=== PATIENT | female | born 1945 | race Caucasian/White ===

== ENCOUNTER → 2016-10-07 | Outpatient (CLI) | payer MEDICARE ==
[~2016-10-07] MED LIST: ALDACTONE25 M1 PO; ALDACTONE25 MG PO; AMIODARONE200 MG PO; AMLODIPINE BESYL5 MG PO; ASPIRIN325 MG PO; ASPIRIN81 M1 PO; ASPRIN/BUTALBIT1 TAB; B12100 MC1 PO; BACTRIM DS 8001 TA1 PO; BUMETANIDE2 MG PO; BUMEX2.5 MG/10 PO; CEPHALEXIN250 MG PO; CLONIDINE0.1 MG PO; COREG12.5 M1 PO; COREG12.5 MG PO; COREG6.25 MG PO; COUMADIN3 M1 PO; COUMADIN6 M1 PO; DICYCLOMINE10 MG PO; DYAZIDE 25 MG-31 CAP PO; GLIPIZIDE5 MG PO; GLUCOTROL5 MG PO; GLYBURIDE2.5 MG PO; GLYBURIDE5 MG PO; HYDROCODONE BIT1 T11 PO; K + POTASSIUM20 MEQ PO; K-Dur 20MEQ20 MEQ PO; LASIX20 MG PO; LASIX40 MG PO; LEVOFLOXACIN500 MG PO; LISINOPRIL40 MG PO; LOVASTATIN40 MG PO; LOVENOX80 MG/0.8 SC; MELOXICAM15 MG PO; METOPROLOL50 MG PO; MICARDIS40 MG PO; MICRONASE5 MG PO; MOBIC15 MG PO; MOTRIN800 MG PO; NEURONTIN300 MG PO; NICODERM C14 MG/241 T; NICOTINE T21 MG/24 H T; NITROSTAT0.4 MG SL; NORVASC5 MG PO; OXYGEN NAS; OYSTER CAL 500500 MG PO; OYSTER SHELL C500 MG PO; PERCOCET 325 MG1 TA2 PO; PLAVIX75 MG; PLAVIX75 MG PO; QUESTRAN1 GM PO; SINEQUAN PO; VICODIN 5/500 505 MG PO; VICODIN 500 MG-1 TAB PO; VITAMIN D2000 IU PO; XANAX0.25 MG PO; ZESTRIL2.5 MG PO
== END | disposition home or self-care (01) ==
LOC: RAD 10:43
DX: M47.897 Other spondylosis, lumbosacral region (principal); M46.07 Spinal enthesopathy, lumbosacral region; I10 Essential (primary) hypertension; J43.8 Other emphysema; E11.9 Type 2 diabetes mellitus without complications; F17.200 Nicotine dependence, unspecified, uncomplicated; I21.3 ST elevation (STEMI) myocardial infarction of unspecified site; Z95.5 Presence of coronary angioplasty implant and graft

== ENCOUNTER → 2017-02-13 | Outpatient (CLI) | payer MEDICARE | END | disposition home or self-care (01) | LOC: RAD 14:37 | DX: M16.0 Bilateral primary osteoarthritis of hip (principal); M47.896 Other spondylosis, lumbar region ==

== ENCOUNTER 2017-05-29 08:59 | Inpatient (IN) | payer MEDICARE ==
[~2017-05-29] VITALS: Ht 165.1 cm; Wt 79.5 kg
--- NOTE | ~2017-05-29 | EKG ---
[place], [place] ELECTROCARDIOGRAM REPORT NAME: CHEMA ALEXIS UNIT #: [id number] ROOM: 419 DOCTOR: DANIEL JACOSB [facility],JULI[facility]AR BIRTHDATE: [birth year] DOS: 05/29/2017 TRACING TIME: 09:35 CONCLUSION: Atrial and ventricular dual-chamber pacing, pacemaker dependent. It appears to be cardiac resynchronization therapy and correlate clinically. No acute changes noted. JULIOCESAR SANCHEZ MD CM:EKGRPT:ELECTROCARDIOGRAM REPORT [id number] JULIOCESAR SANCHEZ MD [facility]
[~2017-05-29 08:59] MED LIST changes: +NORCO 5-325 TA1 EACH PO
[2017-05-29 09:12] VITALS: BP 154/76
[2017-05-29 09:39] LABS: BASO # 0.1 10*3/uL (0.0-0.1); BASO % 0.7 % (0.0-1.0); EOS # 0.2 10*3/uL (0.0-0.4); EOS % 1.8 % (1.0-4.0); HEMOGLOBIN 15.4 g/dl (12.0-16.0); LYMPH # 2.2 10*3/uL (1.3-4.4); LYMPH % 24.9 % (27.0-41.0); MEAN CELL VOLUME 96.6 fl (81.0-99.0); MEAN CORPUSCULAR HGB 32.4 pg (27.0-31.0); MEAN CORPUSCULAR HGB CONC 33.5 g/dl (33.0-37.0); MEAN PLATELET VOLUME 9.3 fl (9.6-12.3); MONO # 0.5 10*3/uL (0.1-1.0); MONO % 5.2 % (3.0-9.0); NEUT # 5.9 10*3/uL (2.3-7.9); NEUT % 67.1 % (47.0-73.0); PLATELET COUNT AUTOMATED 177 10*3/uL (130-400); RED BLOOD COUNT 4.76 10*6/uL (4.10-5.10); RED CELL DISTRI WIDTH 13.4 % (0-14.5); WHITE BLOOD COUNT 8.7 10*3/uL (4.8-10.8)
[2017-05-29 09:54] LABS: ALBUMIN 3.7 gm/dl (3.1-4.5); CREATININE 1.49 mg/dL (0.55-1.02); POTASSIUM 4.5 mmol/L (3.5-5.1); TOTAL PROTEIN 8.3 gm/dL (6.4-8.2)
[2017-05-29 10:25] LABS: BILIRUBIN NEGATIVE (NEGATIVE); BLOOD 1+ (NEGATIVE); CLARITY CLOUDY (CLEAR); COLOR YELLOW (YELLOW); GLUCOSE NEGATIVE (NEGATIVE); KETONE NEGATIVE (NEGATIVE); LEUKO ESTERASE 3+ (NEGATIVE); NITRITE POSITIVE (NEGATIVE); PH 6.5 (5.0-9.0); UROBILINOGEN 0.2 E.U./dl (0.2-1.0)
[2017-05-29 10:35] LABS: BACTERIA 4+; WBC TNTC wbc/hpf (0-5)
[2017-05-29] MEDS ORDERED: BUMETANIDE1 MG PO (12:36)
--- NOTE | 2017-05-29 12:36 | NUR ---
Time: 1235 A 72 year old FEMALE admitted to under services of ABBI NICK DO. Pt. arrived via bed from ER. Chief complaint: BACK PAIN. JOLEEN DELVALLE
[2017-05-29 12:52] VITALS: BP 105/82
--- NOTE | 2017-05-29 12:55 | NUR ---
MED REC UPDATED BY CALLING PHARMACY AND VERIFYING WITH PT.
--- NOTE | 2017-05-29 14:22 | NUR ---
ROCEPHIN WAS GIVEN IN ER. PT CAME UP TO FLOOR WHILE IF WAS INFUSING.
--- NOTE | 2017-05-29 14:31 | NUR ---
PHYSICAL THERAPY PAtient evaluated on 4, full evaluation to follow. Continue with PT as per plan of care with fall, acute complaints of back pain and possible UTI precautions. Refuses SNF- reports " I am going home tomorrow." Home with complete home health services recommended. Thank you for this referral. Carolyn Ochoa,PT
[2017-05-29 16:00] VITALS: BP 101/78
--- NOTE | 2017-05-29 16:01 | NUR ---
C/O PAIN TO BACK OF 4/10 AT REST AND 7/10 WITH MOVEMENT. NORCO GIVEN AT THIS TIME. WILL CONT TO MONITOR. CALL LIGHT IN REACH.
--- NOTE | 2017-05-29 17:00 | NUR ---
PAIN RELIEVED AT REST FROM NORCO. WILL CONT TO MONITOR. CALL LIGHT IN REACH.
--- NOTE | 2017-05-29 17:20 | NUR ---
PER DR KILPATRICK PUT BUMEX ON HOLD UNTIL PATIENT IS REASSESSED TOMORROW AND GIVE ORDERED IVF.
--- NOTE | 2017-05-29 19:30 | NUR ---
PATIENT RESTING IN BED. PATIENT IS NO LONGER COMPLAINING OF BACK PAIN THAT WAS MEDICATED EARLIER IN THE DAY. PATIENT DENIED ANY SOB, DISCOMFORT OR DIZZINESS UPON AMBULATION TO THE BATHROOM. PATIENT IS A&OX3 AND AMBULATORY WITH ASSIST, GAIT UNSTEADY. BED ALARM ACTIVE. CALL LIGHT WITHIN REACH. SEE ASSESSMENT.
[2017-05-29 20:00] VITALS: BP 134/88
[2017-05-30] VITALS: BP 138/84
[2017-05-30 06:04] LABS: BASO # 0.1 10*3/uL (0.0-0.1); EOS # 0.2 10*3/uL (0.0-0.4); HEMOGLOBIN 14.6 g/dl (12.0-16.0); LYMPH # 2.8 10*3/uL (1.3-4.4); LYMPH % 34.1 % (27.0-41.0); MEAN CELL VOLUME 99.3 fl (81.0-99.0); MEAN CORPUSCULAR HGB CONC 33.2 g/dl (33.0-37.0); MEAN PLATELET VOLUME 9.6 fl (9.6-12.3); MONO # 0.5 10*3/uL (0.1-1.0); MONO % 6.7 % (3.0-9.0); NEUT # 4.5 10*3/uL (2.3-7.9); NEUT % 55.8 % (47.0-73.0); PLATELET COUNT AUTOMATED 178 10*3/uL (130-400); RED BLOOD COUNT 4.43 10*6/uL (4.10-5.10); RED CELL DISTRI WIDTH 13.6 % (0-14.5); WHITE BLOOD COUNT 8.1 10*3/uL (4.8-10.8)
[2017-05-30 06:15] LABS: CREATININE 1.43 mg/dL (0.55-1.02); PHOSPHOROUS 3.2 mg/dL (2.5-4.9); POTASSIUM 4.3 mmol/L (3.5-5.1)
[2017-05-30 06:22] LABS: THYROID STIM HORMONE (HS) 4.82 uIU/ml (0.358-4.75)
--- NOTE | 2017-05-30 06:33 | NUR ---
PATIENT GIVEN NORCO PER PT REQUEST FOR BACK PAIN RATED 4/10 AND DESCRIBED A DULL ACHE. WLL CONTINUE TO MONITOR AND REASSESS.
--- NOTE | 2017-05-30 06:48 | NUR ---
PATIENT WAS PLEASANT AND COOPERATIVE THROUGHOUT SHIFT. PATIENT VERBALIZES BEING ABLE TO SLEEP WITH MINIMAL INTERRUPTIONS. PATIENT HAS SOME LOWER BACK PAIN, BUT DENIES ANY OTHER DISCOMFORT AT THIS TIME. PATIENT IS ABLE TO AMBULATE TO THE BATHROOM EASIER WITH MINIMAL ASSISTANCE. CALL LIGHT WITHIN REACH. NO FURTHER REQUESTS AT THIS TIME, HOB ELEVATED. SEE ASSESSMENT.
[2017-05-30 08:00] VITALS: BP 91/56
[2017-05-30 12:00] VITALS: BP 125/75
[2017-05-30 16:00] VITALS: BP 102/74
--- NOTE | 2017-05-30 19:30 | NUR ---
PATIENT IS SITTING UP AT THE BEDSIDE. PATIENT IS NO LONGER RECEIVING FLUIDS. PATIENT VERBALIZES BEING ABLE TO AMBULATE EASIER AND DENIES ANY PAIN OR DISCOMFORT UPON ASSESSMENT. PATIENT IS A&OX3 AND AMBULATORY WITH MINIMAL ASSIST. NO FURTHER REQUESTS AT THIS TIME, BED IN LOWEST POSITION, HOB ELEVATED, CALL LIGHT WITHIN REACH. SEE ASSESSMENT.
[2017-05-30 20:00] VITALS: BP 104/67
[2017-05-31] VITALS: BP 100/75
--- NOTE | 2017-05-31 06:12 | NUR ---
PATIENT GIVEN TYLENOL PER PT REQUEST FOR HEADACHE. WILL CONTINUE TO MONITOR AND REASSESS.
--- NOTE | 2017-05-31 06:20 | NUR ---
PATIENT SLEPT SOUNDLY THROUGHOUT THE NIGHT WITH MINIMAL INTERRUPTIONS. PATIENT DENIES ANY PAIN OR DISCOMFORT, BUT DOES VERBALIZE FEELING A LITTLE HEADACHE UPON ASSSESSMENT. CALL LIGHT IS WITHIN REACH. HOB ELEVATED. SEE ASSESSMENT.
[2017-05-31 08:00] VITALS: BP 123/82
--- NOTE | 2017-05-31 08:00 | NUR ---
PT SITTING UP IN BED, NO DISTRESS NOTED. PT STATES EARLIER TYLENOL WAS EFFECTIVE FOR HEADACHE. PT DENIES ANY COMPLAINTS. STATES LOWER BACK PAIN HAS IMPROVED, WELL HER MOBILITLY. STATES HER URINARY FREQUENCY HAS DECREASED. CALL LIGHT WITHIN REACH.
[2017-05-31] MEDS ORDERED: DOXYCYCLINE100 MG PO (10:41)
[2017-05-31 12:00] VITALS: BP 120/78
--- NOTE | 2017-05-31 13:23 | NUR ---
Discharge instructions reviewed with patient/family. Patient receptive and verbalizes understanding. Follow-up care arranged. Written instructions given to patient/family. IV site removed. Pt denied need for trasnport to [facility] accompanied by son. ASHLEY PARK
--- NOTE | 2017-06-01 13:05 | NUR ---
OT EVALUATION COMPLETED 05/29/17, PT SITTING IN CHAIR. MINIMAL COMPLEXITY DETERMINED BY CHART REVIEW AND OT EVALUATION.
== END 2017-05-31 13:23 | disposition home or self-care (01) | DRG 690 ==
LOC: ED 08:59 → EDHOLD 11:06 → 4E 11:08
PROVIDERS: Internal Medicine Nephrology; Nurse Practitioner Family; ADMIT Emergency Medicine
DX: N30.01 Acute cystitis with hematuria (principal); N18.4 Chronic kidney disease, stage 4 (severe); E11.22 Type 2 diabetes mellitus with diabetic chronic kidney disease; E87.1 Hypo-osmolality and hyponatremia; I12.9 Hypertensive chronic kidney disease with stage 1 through stage 4 chronic kidney disease, or unspecified chronic kidney disease; I25.10 Atherosclerotic heart disease of native coronary artery without angina pectoris; E83.41 Hypermagnesemia; M54.5 Low back pain; B96.20 Unspecified Escherichia coli [E. coli] as the cause of diseases classified elsewhere; E78.5 Hyperlipidemia, unspecified; F17.210 Nicotine dependence, cigarettes, uncomplicated; I25.2 Old myocardial infarction; Z86.73 Personal history of transient ischemic attack (TIA), and cerebral infarction without residual deficits; Z98.42 Cataract extraction status, left eye; Z98.41 Cataract extraction status, right eye; Z95.810 Presence of automatic (implantable) cardiac defibrillator; Z95.5 Presence of coronary angioplasty implant and graft; Z79.02 Long term (current) use of antithrombotics/antiplatelets; Z79.82 Long term (current) use of aspirin; Z79.899 Other long term (current) drug therapy; Z82.3 Family history of stroke; Z83.3 Family history of diabetes mellitus; Z82.49 Family history of ischemic heart disease and other diseases of the circulatory system; Z80.3 Family history of malignant neoplasm of breast

== ENCOUNTER 2017-10-04 17:15 | Inpatient (IN) | payer MEDICARE, MEDICAID ==
[~2017-10-04] VITALS: Ht 167.6 cm; Wt 77.8 kg
--- NOTE | ~2017-10-04 | CON ---
[place], [place] REPORT OF CONSULTATION NAME: CHEMA ALEXIS [facility] #: [id number] UNIT #: [id number] ROOM: 507 DO[facility] BIR[facility] [birth year] DOS: 10/06/2017 CARDIOLOGY CONSULTATION HISTORY OF PRESENT ILLNESS: This is a 72-year-old female came in to the Emergency Room with a progressive increase in swelling and dyspnea for the last several days and changes in the diuretics and optimize medical therapy. It gotten better and I have seen the patient before for congestive heart failure and hypertensive related cardiovascular disease. The patient has history of coronary artery disease. The patient has a cath and coronary stenting done before and denies any significant chest discomfort and nausea or vomiting. The patient has a history of congestive heart failure, peripheral edema, coronary artery disease, coronary stenting, chronic kidney disease stage 4, GFR is about 30 mL/minute, hypertensive cardiovascular disease, and dyslipidemia. PAST MEDICAL HISTORY: The patient has a history of urinary tract disease in the past. PAST SURGICAL HISTORY: Cardiac pacemaker and coronary stenting. SOCIAL HISTORY: No history of alcohol or drug. The patient has history of smoking. FAMILY HISTORY: Father has a history of severe cerebral aneurysm and the mother has history of breast cancer in the past. Father also . ALLERGIES: No known allergies. PHYSICAL EXAMINATION: VITAL SIGNS: Blood pressure 130/74, heart rate is 80, afebrile. GENERAL: Alert and responding well. Cognition is good. SKIN: Warm, not diaphoretic. NECK: Supple. LUNGS: Diminished breath sounds at the bases. Bilateral rhonchi and crepitations. HEART: S1, S2 regular. ____ systolic murmur. Ventricular gallop. ABDOMEN: Soft. EXTREMITIES: A 1-2+ peripheral edema, appears to be improved. RECTAL, GENITAL, AND BREASTS: Deferred unrelated. NEUROLOGIC: No gross focal neurological deficit noted. LABORATORY DATA: Electrolytes are unremarkable. Triglycerides are unremarkable. HDL is unremarkable. HDL is normal. TSH is also unremarkable. Hemoglobin A1c 5.7, normal. Hemoglobin is 14.4, is normal. IMPRESSION: 1. Congestive heart failure, stabilizing. 2. Coronary artery disease, coronary stenting, stable. 3. Chronic kidney disease, stable. 4. Dyslipidemia, stable. [place], [place] REPORT OF CONSULTATION NAME: CHEMA ALEXIS UNIT #: [id number] ROOM: 507 DOCTOR: DANIEL JACOBS [facility],JUL[facility] BIRTHDATE: [birth year] PLAN: Add nitrate, continue the diuretic, and continue the current management. I will review the echocardiogram to evaluate ____ performance whether if the patient has any underlying diastolic congestive heart failure and also systolic heart failure. Thank you very much for asking me to see the patient. I will follow the patient. JULIOCESAR SANCHEZ MD CM:CONSTR:REPORT OF CONSULTATION 1041 10/07/17 0335 interface
[~2017-10-04 17:15] MED LIST changes: +BUMETANIDE1 MG PO; +DOXYCYCLINE100 MG PO
[2017-10-04 17:16] VITALS: BP 134/88
[2017-10-04] MEDS ORDERED: Synthroid,Levo25 MCG PO (17:18)
[2017-10-04 17:38] LABS: BASO # 0.1 10*3/uL (0.0-0.1); BASO % 1.1 % (0.0-1.0); EOS # 0.2 10*3/uL (0.0-0.4); EOS % 2.8 % (1.0-4.0); HEMATOCRIT 44.7 % (37.0-47.0); HEMOGLOBIN 14.9 g/dl (12.0-16.0); LYMPH # 2.8 10*3/uL (1.3-4.4); MEAN CELL VOLUME 98.2 fl (81.0-99.0); MEAN CORPUSCULAR HGB 32.7 pg (27.0-31.0); MEAN CORPUSCULAR HGB CONC 33.3 g/dl (33.0-37.0); MEAN PLATELET VOLUME 9.8 fl (9.6-12.3); MONO # 0.6 10*3/uL (0.1-1.0); MONO % 7.4 % (3.0-9.0); NEUT # 4.9 10*3/uL (2.3-7.9); NEUT % 56.5 % (47.0-73.0); PLATELET COUNT AUTOMATED 175 10*3/uL (130-400); RED BLOOD COUNT 4.55 10*6/uL (4.10-5.10); RED CELL DISTRI WIDTH 13.2 % (0-14.5); WHITE BLOOD COUNT 8.7 10*3/uL (4.8-10.8)
[2017-10-04 17:43] VITALS: BP 134/83
[2017-10-04] MEDS ORDERED: OXYGEN NAS (17:45)
[2017-10-04 17:55] LABS: ALBUMIN 3.5 gm/dl (3.1-4.5); ALKALINE PHOSPHATASE 71 U/L (45-117); BUN 15 mg/dl (7-24); CHLORIDE 105 mmol/L (98-107); CREATININE 1.31 mg/dL (0.55-1.02); POTASSIUM 3.8 mmol/L (3.5-5.1); SGOT/AST 18 IU/L (3-35); SGPT/ALT 15 U/L (12-78); SODIUM 139 mmol/L (136-145); TOTAL PROTEIN 7.4 gm/dL (6.4-8.2); TROPONIN I < 0.015 ng/ml (<0.045)
[2017-10-04 18:15] LABS: ACT PARTIAL THROMBO TIME 24.4 SECONDS (20.8-31.5)
[2017-10-04 20:00] VITALS: BP 119/75
[2017-10-05] VITALS: BP 111/76
[2017-10-05 06:47] LABS: BASO # 0.1 10*3/uL (0.0-0.1); BASO % 0.9 % (0.0-1.0); EOS # 0.2 10*3/uL (0.0-0.4); EOS % 3.1 % (1.0-4.0); HEMATOCRIT 43.1 % (37.0-47.0); HEMOGLOBIN 14.4 g/dl (12.0-16.0); LYMPH # 3.2 10*3/uL (1.3-4.4); LYMPH % 41.1 % (27.0-41.0); MEAN CELL VOLUME 98.4 fl (81.0-99.0); MEAN CORPUSCULAR HGB 32.9 pg (27.0-31.0); MEAN CORPUSCULAR HGB CONC 33.4 g/dl (33.0-37.0); MONO # 0.6 10*3/uL (0.1-1.0); MONO % 7.4 % (3.0-9.0); NEUT # 3.7 10*3/uL (2.3-7.9); NEUT % 47.2 % (47.0-73.0); PLATELET COUNT AUTOMATED 164 10*3/uL (130-400); RED BLOOD COUNT 4.38 10*6/uL (4.10-5.10); RED CELL DISTRI WIDTH 13.3 % (0-14.5); WHITE BLOOD COUNT 7.9 10*3/uL (4.8-10.8)
[2017-10-05 06:59] LABS: ALBUMIN 3.5 gm/dl (3.1-4.5); CREATININE 1.36 mg/dL (0.55-1.02); PHOSPHOROUS 3.4 mg/dL (2.5-4.9); POTASSIUM 3.5 mmol/L (3.5-5.1)
[2017-10-05 07:05] LABS: FREE T4 1.65 ng/dl (0.76-1.46); TOTAL PROTEIN 7.5 gm/dL (6.4-8.2)
[2017-10-05 07:06] LABS: THYROID STIM HORMONE (HS) 2.73 uIU/ml (0.358-4.75)
[2017-10-05 08:00] VITALS: BP 137/73
[2017-10-05 09:20] LABS: VITAMIN D, 25-HYDROXY 37.9 ng/mL (30-100)
[2017-10-05] MEDS ORDERED: DULERA 100 MCG8.8 GM INH (11:35)
[2017-10-05] MEDS ORDERED: ATARAX,VISTARIL50 MG PO (11:36)
[2017-10-05] MEDS ORDERED: NITROGLYCERIN0.4 MG SL (11:38)
[2017-10-05] MEDS ORDERED: SYMB160 INH (11:38)
[2017-10-05] MEDS ORDERED: LOVASTATIN40 MG PO (11:45)
[2017-10-05 12:00] VITALS: BP 132/74
[2017-10-05 16:00] VITALS: BP 122/83
[2017-10-05 20:00] VITALS: BP 131/62
[2017-10-06] VITALS: BP 128/88
[2017-10-06 06:40] LABS: CREATININE 1.42 mg/dL (0.55-1.02); POTASSIUM 3.7 mmol/L (3.5-5.1)
[2017-10-06 08:00] VITALS: BP 120/80
[2017-10-06 12:00] VITALS: BP 93/73
[2017-10-06 16:00] VITALS: BP 110/79
[2017-10-06 18:25] LABS: BILIRUBIN NEGATIVE (NEGATIVE); BLOOD NEGATIVE (NEGATIVE); CLARITY SL CLOUDY (CLEAR); COLOR YELLOW (YELLOW); GLUCOSE NEGATIVE (NEGATIVE); KETONE NEGATIVE (NEGATIVE); LEUKO ESTERASE 3+ (NEGATIVE); NITRITE POSITIVE (NEGATIVE)
[2017-10-06 18:31] LABS: BACTERIA 3+; RBC 0-2 rbc/hpf (0-2); WBC TNTC wbc/hpf (0-5)
[2017-10-06 20:00] VITALS: BP 123/75
[2017-10-07] VITALS: BP 119/74
[2017-10-07 06:58] LABS: ALBUMIN 3.3 gm/dl (3.1-4.5); CREATININE 1.41 mg/dL (0.55-1.02); PHOSPHOROUS 3.7 mg/dL (2.5-4.9); POTASSIUM 3.4 mmol/L (3.5-5.1)
[2017-10-07 08:00] VITALS: BP 146/69
[2017-10-07] MEDS ORDERED: BUMETANIDE1 MG PO (10:28)
[2017-10-07] MEDS ORDERED: OXYGEN NAS (10:28)
[2017-10-07] MEDS ORDERED: B12,B-12,B 12500 MC1 PO (10:28)
[2017-10-07] MEDS ORDERED: K-TAB10 MEQ PO (10:28)
[2017-10-07] MEDS ORDERED: IMDUR SA30 MG PO (13:21)
== END 2017-10-07 13:30 | disposition home or self-care (01) | DRG 291 ==
LOC: ED 17:15 → 5E 18:04 → EDHOLD 18:04 → 5E 18:16
PROVIDERS: Emergency Medicine; Internal Medicine; Internal Medicine Cardiovascular Disease; Registered Nurse
DX: I13.0 Hypertensive heart and chronic kidney disease with heart failure and stage 1 through stage 4 chronic kidney disease, or unspecified chronic kidney disease (principal); I50.43 Acute on chronic combined systolic (congestive) and diastolic (congestive) heart failure; I26.99 Other pulmonary embolism without acute cor pulmonale; N18.4 Chronic kidney disease, stage 4 (severe); I25.10 Atherosclerotic heart disease of native coronary artery without angina pectoris; E78.2 Mixed hyperlipidemia; I08.0 Rheumatic disorders of both mitral and aortic valves; E11.22 Type 2 diabetes mellitus with diabetic chronic kidney disease; E11.65 Type 2 diabetes mellitus with hyperglycemia; Z99.81 Dependence on supplemental oxygen; Z95.810 Presence of automatic (implantable) cardiac defibrillator; Z79.02 Long term (current) use of antithrombotics/antiplatelets; Z79.82 Long term (current) use of aspirin; Z79.899 Other long term (current) drug therapy; Z95.5 Presence of coronary angioplasty implant and graft; I25.2 Old myocardial infarction; Z98.42 Cataract extraction status, left eye; Z98.41 Cataract extraction status, right eye; Z83.3 Family history of diabetes mellitus; Z82.49 Family history of ischemic heart disease and other diseases of the circulatory system; Z82.3 Family history of stroke; Z80.3 Family history of malignant neoplasm of breast

== ENCOUNTER 2017-12-26 21:44 | Emergency (ER) | payer MEDICARE, MEDICAID ==
[~2017-12-26] VITALS: Ht 167.6 cm; Wt 79.4 kg
[~2017-12-26 21:44] MED LIST changes: +ATARAX,VISTARIL50 MG PO; +B12,B-12,B 12500 MC1 PO; +DULERA 100 MCG8.8 GM INH; +IMDUR SA30 MG PO; +K-TAB10 MEQ PO; +NITROGLYCERIN0.4 MG SL; +SYMB160 INH; +Synthroid,Levo25 MCG PO
[2017-12-26 23:56] VITALS: BP 107/62
== END 2017-12-27 03:12 | disposition short-term general hospital (02) ==
LOC: ED 21:44
DX: S32.392A Other fracture of left ilium, initial encounter for closed fracture (principal); S32.492A Other specified fracture of left acetabulum, initial encounter for closed fracture; S40.021A Contusion of right upper arm, initial encounter; F17.200 Nicotine dependence, unspecified, uncomplicated; I25.10 Atherosclerotic heart disease of native coronary artery without angina pectoris; I13.0 Hypertensive heart and chronic kidney disease with heart failure and stage 1 through stage 4 chronic kidney disease, or unspecified chronic kidney disease; E11.22 Type 2 diabetes mellitus with diabetic chronic kidney disease; N18.4 Chronic kidney disease, stage 4 (severe); I50.9 Heart failure, unspecified; E78.5 Hyperlipidemia, unspecified; Z86.73 Personal history of transient ischemic attack (TIA), and cerebral infarction without residual deficits; Z95.0 Presence of cardiac pacemaker; Z95.5 Presence of coronary angioplasty implant and graft; Z79.82 Long term (current) use of aspirin; Z79.899 Other long term (current) drug therapy; W10.8XXA Fall (on) (from) other stairs and steps, initial encounter; Y93.89 Activity, other specified; Y92.099 Unspecified place in other non-institutional residence as the place of occurrence of the external cause; Y99.9 Unspecified external cause status

== ENCOUNTER 2018-06-01 09:26 | Inpatient (IN) | payer MEDICARE ==
[~2018-06-01] VITALS: Ht 167.6 cm; Wt 70.0 kg
--- NOTE | ~2018-06-01 | EKG ---
[place], [place] ELECTROCARDIOGRAM REPORT NAME: CHEMA ALEXIS UNIT #: [id number] ROOM: 525 DOCTOR: CARLOTTA DRAFT REPORT BIRTHDATE: [birth year] [facility] Test Date: 2018-06-01 Test Time: 10:22:29 Pat Name: CHEMA ALEXIS Department: Room: [facility] Gender: F Lighting Designer: : 1945 Requested By: MIGUEL ANGEL SIDDIQUI Order Number: [id number] Reading MD: Jason Pfeiffer MD Measurements Intervals [place] Rate: 83 P: 65 MA: 183 QRS: 170 QRSD: 116 T: QT: 458 QTc: 539 Interpretive Statements Atrial-sensed ventricular-paced rhythm No further analysis attempted due to paced rhythm No previous ECG available for comparison Electronically Signed On 06-01-2018 18:02:11 PST by Jason Pfeiffer MD CM:EKGRPT:ELECTROCARDIOGRAM REPORT 1022 1802 MIGUEL ANGEL SIDDIQUI EPIPHANY DRAFT REPORT MIGUEL ANGEL SIDDIQUI
[2018-06-01 09:26] VITALS: BP 128/90
[2018-06-01 10:27] LABS: BASO # 0.1 10*3/uL (0.0-0.1); BASO % 0.8 % (0.0-1.0); EOS # 0.1 10*3/uL (0.0-0.4); EOS % 0.8 % (1.0-4.0); HEMATOCRIT 44.3 % (37.0-47.0); HEMOGLOBIN 14.7 g/dl (12.0-16.0); LYMPH # 1.7 10*3/uL (1.3-4.4); LYMPH % 18.2 % (27.0-41.0); MEAN CORPUSCULAR HGB 32.5 pg (27.0-31.0); MEAN CORPUSCULAR HGB CONC 33.2 g/dl (33.0-37.0); MEAN PLATELET VOLUME 10.2 fl (9.6-12.3); MONO # 0.4 10*3/uL (0.1-1.0); MONO % 4.2 % (3.0-9.0); NEUT # 7.2 10*3/uL (2.3-7.9); NEUT % 75.6 % (47.0-73.0); PLATELET COUNT AUTOMATED 194 10*3/uL (130-400); RED BLOOD COUNT 4.52 10*6/uL (4.10-5.10); RED CELL DISTRI WIDTH 15.3 % (0-14.5); WHITE BLOOD COUNT 9.6 10*3/uL (4.8-10.8)
[2018-06-01 10:46] LABS: ALBUMIN 3.2 gm/dl (3.1-4.5); ALKALINE PHOSPHATASE 84 U/L (45-117); BUN 8 mg/dl (7-24); CHLORIDE 104 mmol/L (98-107); CREATININE 1.38 mg/dL (0.55-1.02); POTASSIUM 2.9 mmol/L (3.5-5.1); SGOT/AST 18 IU/L (3-35); SGPT/ALT 11 U/L (12-78); SODIUM 140 mmol/L (136-145); TOTAL PROTEIN 7.6 gm/dL (6.4-8.2); TROPONIN I < 0.015 ng/ml (<0.045)
[2018-06-01 12:14] VITALS: BP 109/80
[2018-06-01 12:40] VITALS: BP 128/84
[2018-06-01 13:00] VITALS: BP 128/84
[2018-06-01 16:00] VITALS: BP 100/77
[2018-06-01 20:00] VITALS: BP 107/69
[2018-06-02] VITALS: BP 107/60
[2018-06-02 07:10] LABS: BASO # 0.1 10*3/uL (0.0-0.1); BASO % 0.8 % (0.0-1.0); EOS # 0.1 10*3/uL (0.0-0.4); EOS % 0.8 % (1.0-4.0); HEMATOCRIT 43.3 % (37.0-47.0); HEMOGLOBIN 14.1 g/dl (12.0-16.0); LYMPH # 1.9 10*3/uL (1.3-4.4); LYMPH % 22.4 % (27.0-41.0); MEAN CELL VOLUME 98.9 fl (81.0-99.0); MEAN CORPUSCULAR HGB 32.2 pg (27.0-31.0); MEAN CORPUSCULAR HGB CONC 32.6 g/dl (33.0-37.0); MEAN PLATELET VOLUME 10.5 fl (9.6-12.3); MONO # 0.5 10*3/uL (0.1-1.0); MONO % 5.6 % (3.0-9.0); NEUT # 6.1 10*3/uL (2.3-7.9); NEUT % 70.2 % (47.0-73.0); PLATELET COUNT AUTOMATED 176 10*3/uL (130-400); RED BLOOD COUNT 4.38 10*6/uL (4.10-5.10); RED CELL DISTRI WIDTH 15.7 % (0-14.5); WHITE BLOOD COUNT 8.6 10*3/uL (4.8-10.8)
[2018-06-02 07:45] LABS: ALBUMIN 3.1 gm/dl (3.1-4.5); CREATININE 1.34 mg/dL (0.55-1.02); FREE T4 1.62 ng/dl (0.76-1.46); PHOSPHOROUS 2.7 mg/dL (2.5-4.9); POTASSIUM 3.6 mmol/L (3.5-5.1); TOTAL PROTEIN 7.3 gm/dL (6.4-8.2)
[2018-06-02 07:49] LABS: THYROID STIM HORMONE (HS) 2.57 uIU/ml (0.358-4.75)
[2018-06-02 08:30] VITALS: BP 110/82
[2018-06-02] MEDS ORDERED: FUROSEMIDE20 M1 PO (08:38)
[2018-06-02] MEDS ORDERED: CARVEDILOL3.125 MG PO (08:39)
[2018-06-02 08:43] LABS: VITAMIN D, 25-HYDROXY 31.6 ng/mL (30-100)
[2018-06-02 12:00] VITALS: BP 119/73
[2018-06-02 16:00] VITALS: BP 101/78
[2018-06-02 20:00] VITALS: BP 101/66
[2018-06-03] VITALS: BP 93/68
[2018-06-03 07:20] LABS: POTASSIUM 3.7 mmol/L (3.5-5.1)
[2018-06-03 07:27] LABS: ALBUMIN 3.1 gm/dl (3.1-4.5); CREATININE 1.36 mg/dL (0.55-1.02); PHOSPHOROUS 3.2 mg/dL (2.5-4.9)
[2018-06-03 09:00] VITALS: BP 96/56
[2018-06-03 12:00] VITALS: BP 95/67
[2018-06-03 16:00] VITALS: BP 105/67
[2018-06-03 20:00] VITALS: BP 95/74
[2018-06-04] VITALS: BP 110/75
[2018-06-04 07:05] LABS: CREATININE 1.38 mg/dL (0.55-1.02); POTASSIUM 3.5 mmol/L (3.5-5.1)
[2018-06-04] MEDS ORDERED: ISOSORBIDE MONO20 MG PO (11:42)
== END 2018-06-04 13:35 | disposition home health service (06) | DRG 291 ==
LOC: ED 09:26 → 5E 11:43 → EDHOLD 11:43 → 5E 12:01
PROVIDERS: Family Medicine; Nurse Practitioner Family; Registered Nurse
DX: I13.0 Hypertensive heart and chronic kidney disease with heart failure and stage 1 through stage 4 chronic kidney disease, or unspecified chronic kidney disease (principal); I50.43 Acute on chronic combined systolic (congestive) and diastolic (congestive) heart failure; E44.0 Moderate protein-calorie malnutrition; J84.9 Interstitial pulmonary disease, unspecified; N18.4 Chronic kidney disease, stage 4 (severe); J44.9 Chronic obstructive pulmonary disease, unspecified; E87.6 Hypokalemia; E11.22 Type 2 diabetes mellitus with diabetic chronic kidney disease; I25.118 Atherosclerotic heart disease of native coronary artery with other forms of angina pectoris; R09.02 Hypoxemia; E11.65 Type 2 diabetes mellitus with hyperglycemia; E78.5 Hyperlipidemia, unspecified; Z72.0 Tobacco use; Z95.5 Presence of coronary angioplasty implant and graft; Z95.0 Presence of cardiac pacemaker; Z80.3 Family history of malignant neoplasm of breast; Z84.89 Family history of other specified conditions; Z83.3 Family history of diabetes mellitus; Z82.49 Family history of ischemic heart disease and other diseases of the circulatory system; I25.2 Old myocardial infarction; Z91.81 History of falling; Z86.73 Personal history of transient ischemic attack (TIA), and cerebral infarction without residual deficits; Z87.440 Personal history of urinary (tract) infections; Z79.82 Long term (current) use of aspirin; Z79.899 Other long term (current) drug therapy; Z79.02 Long term (current) use of antithrombotics/antiplatelets; Z71.6 Tobacco abuse counseling; Z68.27 Body mass index [BMI] 27.0-27.9, adult

== ENCOUNTER 2018-07-05 10:47 | Emergency (ER) | payer MEDICARE ==
[~2018-07-05] VITALS: Ht 165.1 cm; Wt 71.2 kg
--- NOTE | ~2018-07-05 | EKG ---
[place], [place] ELECTROCARDIOGRAM REPORT NAME: CHEMA ALEXIS UNIT #: [id number] ROOM: DOCTOR: EPIPHANY DRAFT REPORT BIRTHDATE: [birth year] [facility] Test Date: 2018-07-05 Test Time: 11:50:32 Pat Name: CHEMA ALEXIS Department: Room: Gender: F Neuro Psych Sales Specialist: Freda Mackay : 1945 Requested By: LOLY BHATIA Order Number: [id number] Reading MD: Jani Faith MD Measurements Intervals [place] Rate: 79 P: 113 PA: 143 QRS: 250 QRSD: 124 T: 85 QT: 449 QTc: 515 Interpretive Statements A-V dual-paced rhythm with some inhibition No further analysis attempted due to paced rhythm Compared to ECG 06/01/2018 10:22:29 Atrial-sensed ventricular-paced complex(es) or rhythm no longer present Electronically Signed On 07-06-2018 4:15:08 PST by Jani Faith MD CM:EKGRPT:ELECTROCARDIOGRAM REPORT 1150 0415 LOLY LAGUERRE DRAFT REPORT LOLY PEARSON
[~2018-07-05 10:47] MED LIST changes: +CARVEDILOL3.125 MG PO; +FUROSEMIDE20 M1 PO; +ISOSORBIDE MONO20 MG PO
[2018-07-05 11:56] LABS: BILIRUBIN NEGATIVE (NEGATIVE); BLOOD NEGATIVE (NEGATIVE); CLARITY CLEAR (CLEAR); COLOR STRAW (YELLOW); GLUCOSE NEGATIVE (NEGATIVE); KETONE NEGATIVE (NEGATIVE); LEUKO ESTERASE NEGATIVE (NEGATIVE); NITRITE NEGATIVE (NEGATIVE); SPECIFIC GRAVITY 1.015 (1.005-1.030); UROBILINOGEN 0.2 E.U./dl (0.2-1.0)
[2018-07-05 12:11] LABS: BASO # 0.1 10*3/uL (0.0-0.1); BASO % 0.9 % (0.0-1.0); EOS # 0.1 10*3/uL (0.0-0.4); EOS % 0.9 % (1.0-4.0); HEMATOCRIT 44.8 % (37.0-47.0); HEMOGLOBIN 14.9 g/dl (12.0-16.0); LYMPH # 1.8 10*3/uL (1.3-4.4); MEAN CELL VOLUME 101.4 fl (81.0-99.0); MEAN CORPUSCULAR HGB 33.7 pg (27.0-31.0); MEAN CORPUSCULAR HGB CONC 33.3 g/dl (33.0-37.0); MEAN PLATELET VOLUME 9.9 fl (9.6-12.3); MONO # 0.4 10*3/uL (0.1-1.0); NEUT # 6.6 10*3/uL (2.3-7.9); PLATELET COUNT AUTOMATED 190 10*3/uL (130-400); RED BLOOD COUNT 4.42 10*6/uL (4.10-5.10); RED CELL DISTRI WIDTH 15.8 % (0-14.5); WHITE BLOOD COUNT 8.9 10*3/uL (4.8-10.8)
[2018-07-05 12:23] LABS: ACT PARTIAL THROMBO TIME 24.6 SECONDS (20.8-31.5)
[2018-07-05 12:30] LABS: ALBUMIN 3.5 gm/dl (3.1-4.5); ALKALINE PHOSPHATASE 74 U/L (45-117); BUN 11 mg/dl (7-24); CHLORIDE 108 mmol/L (98-107); CREATININE 1.34 mg/dL (0.55-1.02); LIPASE 62 U/L (73-393); POTASSIUM 4.7 mmol/L (3.5-5.1); SGOT/AST 17 IU/L (3-35); SGPT/ALT 11 U/L (12-78); SODIUM 139 mmol/L (136-145); TOTAL PROTEIN 7.9 gm/dL (6.4-8.2)
[2018-07-05 12:34] LABS: TROPONIN I < 0.015 ng/ml (<0.045)
[2018-07-05 14:00] VITALS: BP 135/76
[2018-07-05] MEDS ORDERED: ZOFRAN4 MG PO (14:20)
== END 2018-07-05 14:16 | disposition home or self-care (01) ==
LOC: ED 10:47
PROVIDERS: Physician Assistant
DX: K52.9 Noninfective gastroenteritis and colitis, unspecified (principal); R42 Dizziness and giddiness; R79.1 Abnormal coagulation profile; Z88.8 Allergy status to other drugs, medicaments and biological substances; Z79.899 Other long term (current) drug therapy; Z79.82 Long term (current) use of aspirin

== ENCOUNTER 2018-09-04 10:19 | Inpatient (IN) | payer MEDICARE ==
[2018-09-04] VITALS (7 sets, daily range): BP systolic 115–148; BP diastolic 68–87
[~2018-09-04] VITALS: Ht 167.6 cm; Wt 74.5 kg
--- NOTE | ~2018-09-04 | CON ---
[place], [place] REPORT OF CONSULTATION NAME: CHEMA ALEXIS [facility] #: [id number] UNIT #: [id number] ROOM: 421 DOCTOR: DANIEL JACOBS [facility],JULIOCESAR BIRTHDATE: [birth year] DOS: 09/06/2018 HISTORY OF PRESENT ILLNESS: The patient came in with progressive dyspnea. Continued to smoke about a pack to a pack a day and the patient has recurrent congestive heart failure and found to the pneumonia, hypertension, history of CVA, dyslipidemia and chronic kidney disease, chronic obstructive disease. I will follow the patient periodically. I will follow the patient's coronary artery disease, coronary stenting and a pacemaker, systolic ejection fraction is 30%-35%. The patient has a hepatojugular, bibasilar rales, ventricular gallop, 2+ ankle edema. LABORATORY DATA: Creatinine is 1.29. Hemoglobin 13.2. Chest x-ray: Emphysematous changes, consolidation in the right middle and lower lung zone and underlying pulmonary congestion may be considered. IMPRESSION: Congestive heart failure and pneumonia. PLAN: Continue the current management. Continue the amiodarone 200 mg daily and a baby aspirin, Plavix, glipizide, gabapentin, thyroid supplements, lovastatin, potassium supplements, carvedilol and isosorbide and the diuretics. We will continue current management. I may make appropriate adjustments when I follow her in the office. Thank you very much for asking me to see the patient. JULIOCESAR SANCHEZ MD CM:CONSTR:REPORT OF CONSULTATION 1849 09/07/18 0720 interface
--- NOTE | ~2018-09-04 | EKG ---
[place], [place] ELECTROCARDIOGRAM REPORT NAME: CHEMA ALEXIS UNIT #: [id number] ROOM: 421 DOCTOR: CARLOTTA DRAFT REPORT BIRTHDATE: [birth year] [facility] Test Date: 2018-09-04 Test Time: 11:53:45 Pat Name: CHEMA ALEXIS Department: Room: 421 Gender: F Grocery Store Bagger: Freda Mackay : 1945 Requested By: SELWYN DARBY Order Number: [id number] Reading MD: Benja King Measurements Intervals [place] Rate: 80 P: 146 CA: 154 QRS: 249 QRSD: 146 T: 84 QT: 459 QTc: 530 Interpretive Statements Atrial-ventricular paced Compared to ECG 07/05/2018 11:50:32 No significant changes Electronically Signed On 09-05-2018 11:05:44 PDT by Benja King CM:EKGRPT:ELECTROCARDIOGRAM REPORT 1153 1105 SELWYN LAGUERRE DRAFT REPORT SELWYN DARBY M.D.
--- NOTE | ~2018-09-04 | CON ---
[place], [place] REPORT OF CONSULTATION NAME: CHEMA ALEXIS UNIT #: [id number] ROOM: 421 DO[facility] B[facility] [birth year] DOS: CARDIOLOGY CONSULTATION HISTORY OF PRESENT ILLNESS: The patient came in with progressive dyspnea, found to be in pneumonia and acute exacerbation of the chronic congestive heart failure. The patient continues to smoke more than a pack a day and the patient found to be in hypokalemic, hyperglycemia, coronary artery disease and history of hypertension, hypertensive cardiovascular disease, CVA, dyslipidemia, chronic obstructive pulmonary disease. The patient smokes half a pack to a pack a day and the patient's unilateral big toe and second toe and peripheral edema noted. The patient has severe peripheral artery disease and systolic ejection fraction of less than 30-35. The patient had a coronary stenting and the patient has a pacemaker and the ICD supposed to be explanted because of the infection, and supposed to put it back in September. PHYSICAL EXAMINATION: VITAL SIGNS: Blood pressure is 110/69, heart rate is 90. GENERAL: The patient has a wide QRS complex tachycardia, ventricular tachycardia, nonsustained and at times, as it sustained, the patient has a LifeVest. The patient has positive hepatojugular reflux. LUNGS: Diminished breath sounds, bibasilar rales. HEART: S1, S2 regular. ABDOMEN: Soft. SKIN: Color is not diaphoretic. EXTREMITIES: Peripheral edema noted 3+. RECTAL AND GENITAL: Deferred, unrelated. LABORATORY DATA: Creatinine is 1.23. Electrolytes are normal. Magnesium is normal. Calcium is normal. Hemoglobin is 13.2, WBC count is normal. DIAGNOSES: Congestive heart failure, severe left ventricular dysfunction, ejection fraction less than 35%, sustained ventricular tachycardia. PLAN: The patient's LifeVest ICD was removed because of the infection, may put back on the ICD meanwhile, increase the beta blocking agents and increase the Cordarone to maintain the optimal rhythm and optimal heart rate and the heart rate is greater than 90. I will increase beta nellie, it may come down, we will continue the current management. Thank you very much for asking me to see the patient. I will follow the patient. [place], [place] REPORT OF CONSULTATION NAME: CHEMA ALEXIS UNIT #: [id number] ROOM: 421 DOCTOR: [facility]BS [facility] BIR[facility]: [birth year] JULIOCESAR SANCHEZ MD CM:CONSTR:REPORT OF CONSULTATION 184 10/07/181947 interface [facility]
--- NOTE | ~2018-09-04 | CON ---
[place], [place] REPORT OF CONSULTATION NAME: CHEMA ALEXIS UNIT #: [id number] ROOM: 421 DOCTOR: DANIEL JACOBS [facility],JULIOCESAR BIRTHDATE: [birth year] DOS: ADDENDUM Blank is unilateral big toe. JUILOCESAR SANCHEZ MD CM:CONSTR:REPORT OF CONSULTATION 1237 10/07/18 1949 interface
[~2018-09-04 10:19] MED LIST changes: +ZOFRAN4 MG PO
[2018-09-04 10:52] LABS: BASO # 0.1 10*3/uL (0.0-0.1); BASO % 0.8 % (0.0-1.0); EOS # 0.2 10*3/uL (0.0-0.4); EOS % 1.7 % (1.0-4.0); HEMATOCRIT 43.4 % (37.0-47.0); HEMOGLOBIN 13.9 g/dl (12.0-16.0); LYMPH # 1.6 10*3/uL (1.3-4.4); LYMPH % 16.8 % (27.0-41.0); MEAN CELL VOLUME 102.8 fl (81.0-99.0); MEAN CORPUSCULAR HGB 32.9 pg (27.0-31.0); MEAN PLATELET VOLUME 10.2 fl (9.6-12.3); MONO # 0.5 10*3/uL (0.1-1.0); MONO % 4.9 % (3.0-9.0); NEUT # 7.3 10*3/uL (2.3-7.9); NEUT % 75.6 % (47.0-73.0); PLATELET COUNT AUTOMATED 170 10*3/uL (130-400); RED BLOOD COUNT 4.22 10*6/uL (4.10-5.10); RED CELL DISTRI WIDTH 15.1 % (0-14.5); WHITE BLOOD COUNT 9.6 10*3/uL (4.8-10.8)
[2018-09-04 11:19] LABS: ALBUMIN 3.1 gm/dl (3.1-4.5); CREATININE 1.32 mg/dL (0.55-1.02); POTASSIUM 3.1 mmol/L (3.5-5.1); TOTAL PROTEIN 7.2 gm/dL (6.4-8.2)
[2018-09-04] MEDS ORDERED: ISOSORBIDE DINI PO (15:15)
[2018-09-05] VITALS: BP 133/74
[2018-09-05 07:39] LABS: BASO # 0.1 10*3/uL (0.0-0.1); BASO % 0.7 % (0.0-1.0); EOS # 0.2 10*3/uL (0.0-0.4); HEMOGLOBIN 13.6 g/dl (12.0-16.0); LYMPH # 1.6 10*3/uL (1.3-4.4); LYMPH % 18.2 % (27.0-41.0); MEAN CELL VOLUME 102.1 fl (81.0-99.0); MEAN CORPUSCULAR HGB 32.3 pg (27.0-31.0); MEAN CORPUSCULAR HGB CONC 31.6 g/dl (33.0-37.0); MEAN PLATELET VOLUME 10.1 fl (9.6-12.3); MONO # 0.6 10*3/uL (0.1-1.0); MONO % 6.8 % (3.0-9.0); NEUT # 6.4 10*3/uL (2.3-7.9); PLATELET COUNT AUTOMATED 157 10*3/uL (130-400); RED BLOOD COUNT 4.21 10*6/uL (4.10-5.10); RED CELL DISTRI WIDTH 15.1 % (0-14.5); WHITE BLOOD COUNT 8.9 10*3/uL (4.8-10.8)
[2018-09-05 08:00] VITALS: BP 136/68
[2018-09-05 08:10] LABS: ACT PARTIAL THROMBO TIME 24.7 SECONDS (20.8-31.5); INTERNATIONAL NORM RATIO 1.1 (2.0-3.5)
[2018-09-05 08:16] LABS: ALBUMIN 3.2 gm/dl (3.1-4.5); CREATININE 1.25 mg/dL (0.55-1.02); PHOSPHOROUS 2.7 mg/dL (2.5-4.9); TOTAL PROTEIN 7.1 gm/dL (6.4-8.2)
[2018-09-05 08:23] LABS: THYROID STIM HORMONE (HS) 3.19 uIU/ml (0.358-4.75)
[2018-09-05 09:29] LABS: VITAMIN D, 25-HYDROXY 28.6 ng/mL (30-100)
[2018-09-05 12:00] VITALS: BP 107/68
[2018-09-05 16:00] VITALS: BP 101/69
[2018-09-05 20:00] VITALS: BP 121/72
[2018-09-06] VITALS: BP 120/53
[2018-09-06 07:15] LABS: BASO # 0.1 10*3/uL (0.0-0.1); BASO % 0.7 % (0.0-1.0); EOS # 0.3 10*3/uL (0.0-0.4); EOS % 3.3 % (1.0-4.0); HEMATOCRIT 41.2 % (37.0-47.0); HEMOGLOBIN 13.2 g/dl (12.0-16.0); LYMPH % 23.2 % (27.0-41.0); MEAN PLATELET VOLUME 10.8 fl (9.6-12.3); MONO # 0.6 10*3/uL (0.1-1.0); MONO % 7.3 % (3.0-9.0); NEUT # 5.5 10*3/uL (2.3-7.9); NEUT % 65.1 % (47.0-73.0); PLATELET COUNT AUTOMATED 142 10*3/uL (130-400); WHITE BLOOD COUNT 8.5 10*3/uL (4.8-10.8)
[2018-09-06 07:39] LABS: CREATININE 1.23 mg/dL (0.55-1.02); POTASSIUM 3.7 mmol/L (3.5-5.1)
[2018-09-06 08:00] VITALS: BP 98/62
[2018-09-06 12:00] VITALS: BP 81/60
[2018-09-06 16:00] VITALS: BP 111/69
[2018-09-06] MEDS ORDERED: LASIX40 MG PO (17:31)
== END 2018-09-06 18:39 | disposition home or self-care (01) | DRG 177 ==
LOC: ED 10:19 → EDHOLD 12:12 → 4E 12:54
PROVIDERS: Emergency Medicine; Student in an Organized Health Care Education/Training Program; ADMIT Internal Medicine
DX: J69.0 Pneumonitis due to inhalation of food and vomit (principal); I50.43 Acute on chronic combined systolic (congestive) and diastolic (congestive) heart failure; I13.0 Hypertensive heart and chronic kidney disease with heart failure and stage 1 through stage 4 chronic kidney disease, or unspecified chronic kidney disease; E87.6 Hypokalemia; J44.9 Chronic obstructive pulmonary disease, unspecified; I25.10 Atherosclerotic heart disease of native coronary artery without angina pectoris; N18.3 Chronic kidney disease, stage 3 (moderate); E11.22 Type 2 diabetes mellitus with diabetic chronic kidney disease; F17.210 Nicotine dependence, cigarettes, uncomplicated; E78.5 Hyperlipidemia, unspecified; E11.36 Type 2 diabetes mellitus with diabetic cataract; Z80.3 Family history of malignant neoplasm of breast; Z83.3 Family history of diabetes mellitus; Z82.49 Family history of ischemic heart disease and other diseases of the circulatory system; Z88.9 Allergy status to unspecified drugs, medicaments and biological substances; Z91.81 History of falling; Z87.81 Personal history of (healed) traumatic fracture; Z86.73 Personal history of transient ischemic attack (TIA), and cerebral infarction without residual deficits; I25.2 Old myocardial infarction; Z98.49 Cataract extraction status, unspecified eye; Z95.0 Presence of cardiac pacemaker; Z79.82 Long term (current) use of aspirin; Z71.6 Tobacco abuse counseling; Z79.84 Long term (current) use of oral hypoglycemic drugs

== ENCOUNTER → 2018-10-18 | Outpatient (CLI) | payer MEDICARE ==
[~2018-10-18] MED LIST changes: +ISOSORBIDE DINI PO
== END | disposition home or self-care (01) ==
LOC: LAB 11:58
DX: R19.7 Diarrhea, unspecified (principal)

== ENCOUNTER 2019-01-23 21:29 | Emergency (ER) | payer MEDICARE ==
[~2019-01-23] VITALS: Ht 172.7 cm; Wt 56.7 kg
[2019-01-23 21:36] VITALS: BP 137/83
== END 2019-01-23 22:00 | disposition home or self-care (01) ==
LOC: ED 21:29
DX: S80.812A Abrasion, left lower leg, initial encounter (principal); I25.10 Atherosclerotic heart disease of native coronary artery without angina pectoris; J44.9 Chronic obstructive pulmonary disease, unspecified; I10 Essential (primary) hypertension; I25.2 Old myocardial infarction; E03.9 Hypothyroidism, unspecified; I13.0 Hypertensive heart and chronic kidney disease with heart failure and stage 1 through stage 4 chronic kidney disease, or unspecified chronic kidney disease; N18.3 Chronic kidney disease, stage 3 (moderate); I50.9 Heart failure, unspecified; E11.22 Type 2 diabetes mellitus with diabetic chronic kidney disease; F17.200 Nicotine dependence, unspecified, uncomplicated; Z79.899 Other long term (current) drug therapy; Z79.82 Long term (current) use of aspirin; Z86.73 Personal history of transient ischemic attack (TIA), and cerebral infarction without residual deficits; Z99.81 Dependence on supplemental oxygen; W22.8XXA Striking against or struck by other objects, initial encounter; Y93.01 Activity, walking, marching and hiking; Y92.89 Other specified places as the place of occurrence of the external cause; Y99.8 Other external cause status

== ENCOUNTER 2019-02-22 00:17 | Inpatient (IN) | payer MEDICARE ==
[2019-02-22] VITALS (8 sets, daily range): BP systolic 103–139; BP diastolic 70–87
[~2019-02-22] VITALS: Ht 165.1 cm; Wt 68.6 kg
[2019-02-22 00:49] LABS: BASO # 0.1 10*3/uL (0.0-0.1); BASO % 0.5 % (0.0-1.0); EOS # 0.2 10*3/uL (0.0-0.4); HEMATOCRIT 40.2 % (37.0-47.0); HEMOGLOBIN 13.3 g/dl (12.0-16.0); LYMPH # 1.9 10*3/uL (1.3-4.4); LYMPH % 21.1 % (27.0-41.0); MEAN CELL VOLUME 98.5 fl (81.0-99.0); MEAN CORPUSCULAR HGB 32.6 pg (27.0-31.0); MEAN CORPUSCULAR HGB CONC 33.1 g/dl (33.0-37.0); MEAN PLATELET VOLUME 10.3 fl (9.6-12.3); MONO # 0.5 10*3/uL (0.1-1.0); MONO % 5.8 % (3.0-9.0); NEUT # 6.4 10*3/uL (2.3-7.9); NEUT % 70.3 % (47.0-73.0); PLATELET COUNT AUTOMATED 154 10*3/uL (130-400); RED BLOOD COUNT 4.08 10*6/uL (4.10-5.10); WHITE BLOOD COUNT 9.2 10*3/uL (4.8-10.8)
[2019-02-22 00:59] LABS: ACT PARTIAL THROMBO TIME 29.7 SECONDS (20.0-32.1); INTERNATIONAL NORM RATIO 1.1 (2.0-3.5)
[2019-02-22 01:06] LABS: ALBUMIN 3.2 gm/dl (3.1-4.5); ALKALINE PHOSPHATASE 71 U/L (45-117); BUN 8 mg/dl (7-24); CHLORIDE 107 mmol/L (98-107); CREATININE 1.13 mg/dL (0.55-1.02); POTASSIUM 2.5 mmol/L (3.5-5.1); SGOT/AST 16 IU/L (3-35); SGPT/ALT 12 U/L (12-78); SODIUM 142 mmol/L (136-145); TOTAL PROTEIN 7.2 gm/dL (6.4-8.2)
[2019-02-22 01:08] LABS: TROPONIN I < 0.015 ng/ml (<0.045)
--- NOTE | 2019-02-22 01:43 | NUR ---
PT TALKING WITH FAMILY NO ACCUTE DISTRESS NOTED. VISHAL ENAMORADO RN,
--- NOTE | 2019-02-22 02:41 | NUR ---
PT HAS HEALING LACERTATION NOTED TO LEFT LOWER LEG NO OPEN AREA NO DRAINAGE FROM SITE. VISHAL ENAMORADO RN.
--- NOTE | 2019-02-22 03:00 | NUR ---
I ASK THE PATIENT ABOUT THE MULTIPLE ECCHYMOTIC AREAS ON HER ARMS. THE PATIENT STATES THESE ARE NOT NEW. AND SHE ALWAYS BRUISES. NO OPEN AREA'S NOTED. VISHAL ENAMORADO RN.
--- NOTE | 2019-02-22 03:37 | NUR ---
A 74, admitted to , under the services of DON Pearson DO with a diagnosis of chf. hypokalemia. Chief complaint is increased sob and ble edema x 1 wk. patient takes lasix routinely and uses o2 prn. Patient arrived via bed from ER. Monitor applied. Initial assessment completed. Vital signs taken and recorded. DON PEARSON DO / anjelica notified of admission to the unit. Orders received. See assessment for past medical history, medications and allergies. Patient and/or family oriented to unit. [facility] visitation policy reviewed. Clothing/patient valuable form completed. RAN THOMPSON
--- NOTE | 2019-02-22 03:49 | NUR ---
UPON TAKING THE PATIENT UP STAIRS TO THE FLOOD SHE STARTED TO COMPLAIN AND I DID STOP THE INFUSION AND LET THE RECIEVING NURSE KNOW. VISHAL ENAMORADO RN.
[2019-02-22] MEDS ORDERED: ONDANSETRON HYDR4 MG PO (03:53)
[2019-02-22] MEDS ORDERED: FUROSEMIDE20 M1 PO (03:54)
[2019-02-22] MEDS ORDERED: ISOSORBIDE MONO10 MG PO (03:58)
--- NOTE | 2019-02-22 06:30 | NUR ---
BSG 168, DECLINES COVERAGE STATING SHE DOESN'T USE INSULIN
--- NOTE | 2019-02-22 06:30 | NUR ---
K-RUN MAINTAINED, PATIENT TOLERATING.
[2019-02-22 06:42] LABS: BASO # 0.1 10*3/uL (0.0-0.1); BASO % 0.7 % (0.0-1.0); EOS # 0.1 10*3/uL (0.0-0.4); EOS % 1.4 % (1.0-4.0); HEMATOCRIT 40.8 % (37.0-47.0); HEMOGLOBIN 13.4 g/dl (12.0-16.0); LYMPH # 2.3 10*3/uL (1.3-4.4); LYMPH % 22.5 % (27.0-41.0); MEAN CELL VOLUME 99.5 fl (81.0-99.0); MEAN CORPUSCULAR HGB 32.7 pg (27.0-31.0); MEAN CORPUSCULAR HGB CONC 32.8 g/dl (33.0-37.0); MEAN PLATELET VOLUME 10.4 fl (9.6-12.3); MONO # 0.5 10*3/uL (0.1-1.0); MONO % 5.2 % (3.0-9.0); NEUT # 7.1 10*3/uL (2.3-7.9); NEUT % 69.7 % (47.0-73.0); PLATELET COUNT AUTOMATED 172 10*3/uL (130-400); RED CELL DISTRI WIDTH 16.1 % (0-14.5); WHITE BLOOD COUNT 10.2 10*3/uL (4.8-10.8)
[2019-02-22 07:21] LABS: ALBUMIN 3.3 gm/dl (3.1-4.5); CREATININE 1.18 mg/dL (0.55-1.02); POTASSIUM 2.9 mmol/L (3.5-5.1)
[2019-02-22 07:29] LABS: FREE T4 1.8 ng/dl (0.76-1.46); THYROID STIM HORMONE (HS) 2.91 uIU/ml (0.358-4.75); TOTAL PROTEIN 7.4 gm/dL (6.4-8.2)
--- NOTE | 2019-02-22 07:40 | NUR ---
ATTEMPTED TO REACH DR SANCHEZ THROUGH ANSWERING SERVICE REGARDING CONSULT. MESSAGE LEFT WITH EDIL WHO IS TO PAGE DR SANCHEZ
--- NOTE | 2019-02-22 08:05 | NUR ---
SPOKE TO DR SANCHEZ REGARDING CONSULT. NEW ORDERS RECEIVED.
--- NOTE | 2019-02-22 08:16 | NUR ---
Nursing screen received and chart reviewed. Patient admitted with CHF. If patient should have a decline in ADls and functional mobility then refer to OT. Thank you. Ree Beaulieu OTR/l
--- NOTE | 2019-02-22 09:16 | NUR ---
VANESACHEMA Mark [id number] Please refer to the physician's history and physical for past medical history, comorbid conditions, and allergies. Diagnosis: CHF HYPOKALMEIA Aidan Score: 16,AT RISK WOUND DESCRIPTIONS: Wound Number: 1 Location of the wound: left lower extremity lateral aspect Thickness: Full Size: 4.9cm x 1.2cm x 0.1cm Tunneling: none Undermining: none Sinus Tract: none Presence of Exudate: Serous Amount: Light Color: Yellow, red Odor: none Periwound Skin Appearance: Normal Wound edges: approximated Pain (associated with wound): none at time of assessmen How does patient state this happened? pt unsure how this happened but states it does seep Surface the patient is resting on: Isoflex SKIN PREVENTION RECOMMENDATION: 1. Pressure redistribution support surface as appropriate 2. Elevate heels 3. Remove boots/TEDS every shift and reapply 4. Head of bed 30 degrees as tolerated 5. Assess nutrition and hydration 6. Manage moisture 7. Avoid the use of containment devices while in bed 8. Use absorptive products on surfaces limit layers of linens on bed 9. Turn and reposition every 1-2 hours in bed and every 1 hour in chair as tolerated 10. Weight shifts every 15 minutes while up in chair 11. Offloading with pillows or device to keep heels elevated off bed 12. Monitor skin at least every shift 13. Inspect under medical devices twice a day WOUND TREATMENT RECOMMENDATIONS: Venous and arterial studies to BLE's due to non-healing wound. Consult podiatry for LLE wound. Full thickness guidelines: Cleanse left lower extremity with nss and apply sureprep around the wound therahoney sheet to wound bed and cover with dsd daily and prn for soiling. Heel raiser pro boots to bilateral feet while in bed.
--- NOTE | 2019-02-22 10:11 | NUR ---
Dr. Gurrola notified of wound care recommendations.
--- NOTE | 2019-02-22 12:35 | NUR ---
C/O INCREASED SOB AND ABD FULLNESS. VSS. DR KENDRICK NOTIFIED.
[2019-02-22 12:36] LABS: BUN 8 mg/dl (7-24); CHLORIDE 110 mmol/L (98-107); CREATININE 1.05 mg/dL (0.55-1.02); SODIUM 144 mmol/L (136-145)
[2019-02-22 12:41] LABS: POTASSIUM 3.8 mmol/L (3.5-5.1)
--- NOTE | 2019-02-22 15:10 | NUR ---
PHYSICAL THERAPY Physical therapy evaluation attempted. Patient reporting that she has not been able to sleep, and she is on edge due to fatigue. Patient requesting that PT return at a later date to complete evaluation. Will attempt PT evaluation at a later date. Thank you. Aliza Badillo,PT,DPT
--- NOTE | 2019-02-22 15:59 | NUR ---
PHYSICIAN WAS NOTIFIED OF DR. TORRES CONSULT. RESPONSE OF NOTIFICATION WAS OK I WILL SEE HER. JOLEEN DELVALLE
--- NOTE | 2019-02-22 16:30 | NUR ---
PT WAS IN ROOM CRYING AND SAID THAT HER "NERVES ARE BAD RIGHT NOW". SHE WAS SHAKING AND ASKED IF SHE COULD HAVE SOMETHING BECAUSE SHE HASN'T SLEPT IN [address] KENDRICK NOTIFIED AND SAID SHE WILL PUT SOMETHING IN.
--- NOTE | 2019-02-22 17:00 | NUR ---
DR READ CAME OUT AND STATED PT WAS CRYING, THROWING UP AND STATED SHE NEEDED SOMETHING FOR HER BACK PAIN. WHEN I ASKED SHE STATED HER BACK PAIN WAS 8/10 AND ASKED FOR HER NORCO THAT SHE TAKES DAILY. DYLLAN AND FRITZ GIVEN. WILL CONT TO MONITOR. CALL LIGHT IN REACH.
--- NOTE | 2019-02-22 18:00 | NUR ---
PT STATES PRN MEDS EFF. WILL CONT TO MONITOR. CALL LIGHT IN REACH.
--- NOTE | 2019-02-22 19:43 | NUR ---
24 HR chart check completed.
[2019-02-23] VITALS: BP 101/63
--- NOTE | 2019-02-23 00:15 | NUR ---
RHYTHM CHANGED STILL 100% DUAL PACED EKG PER NURSE MEASURE. PT. AWAKEND NO C/O, "FEELS FINE".
--- NOTE | 2019-02-23 00:34 | NUR ---
CALLED DR. HERRERA AND NOTIFIED HIM OF EKG DONE AND HE IS GOING TO LOOK AT IT. WILL CONTINUE TO MONITOR AND CALL WITH ANY CHANGED. PT. STILL ASYMPT.
--- NOTE | 2019-02-23 02:27 | NUR ---
called Dr. Siegel to see if he was able to look at EKG. He looked at EKG and suggests calling Dr. Cameron and he is going to order another EKG and troponins.
--- NOTE | 2019-02-23 02:35 | NUR ---
CALLED DR. PEREZ AND PT. HAS A PACEMAKER AND "IT'S OK" OK TO HAVE TROPONINS AND ANOTHER EKG DONE AND TO ALSO GET PACEMAKER INTERROGATED.
--- NOTE | 2019-02-23 02:42 | NUR ---
DR. PEREZ CALLED BACK IN AND HE GOT MORE INFORMATION, NO ORDERS AT THIS TIME.
--- NOTE | 2019-02-23 02:49 | NUR ---
Patient SLEEPING quietly. Respirations easy and regular. No overt distress. BED LOCKED IN LOWEST POSITION. CALL LIGHT WITHIN REACH. ABBIE WALSH
[2019-02-23 05:57] VITALS: BP 118/64
--- NOTE | 2019-02-23 06:36 | NUR ---
BS 68. OJ GIVEN. WILL RECHECK.
--- NOTE | 2019-02-23 06:59 | NUR ---
TAP WATER ENEMA GIVEN. APPEARS SLIGHTLY PALE YELLOW/CLEAR.
[2019-02-23 08:00] VITALS: BP 102/60; BP 82/58
--- NOTE | 2019-02-23 10:18 | NUR ---
PHYSICAL THERAPY Physical therapy evaluation completed. Full details and evaluation to follow. Low complexity skilled PT evaluation performed (42708). PT will work on strength, balance, safety, and transfers. Recommend home with home health upon discharge. Thank you, Renee Lozano, SPT Aliza Badillo,PT,DPT
--- NOTE | 2019-02-23 10:59 | NUR ---
C/O PAIN TO BACK OF 11/22. NORCO GIVEN AT THIS TIME. WILL CONT TO MONITOR. CALL LIGHT IN REACH.
--- NOTE | 2019-02-23 11:46 | NUR ---
Special Events Assistant in to talk to patient. Patient states lives at HOME with ALONE WITH FAMILY LOOKING IN ON HER. There are NO steps in the home. Physician: HALIE SILVA [facility]: [facility] Home health services: NONE AT THIS TIME Patient's level of ADLs: INDEPENDENT Patient has working utilities: YES DME: OXYGEN, 3L HS PRN. DOES NOT KNOW NAME OF O2 COMPANY Follow-up physician's appointment after d/c: WILL BE MADE BY HOSPITALIST NURSE DIRECTOR ON DISCHARGE Does patient want to access PORTAL?: NO Discharge plan PT LIVES AT HOME ALONE, STATES SHE HAS FAMILY THAT CHECKS IN ON HER. PT STATES SHE WANTS TO GO HOME ON DISCHARGE. TALKED TO HER ABOUT HOME HEALTH AND SHE DOES AGREE TO IT. PT GIVEN LIST OF LOCAL HH AND SHE CHOSE [facility] STATES SHE HAS HAD THEM BEFORE AND LIKED THEM. DENIES ANY OTHER NEEDS. WILL CONTINUE TO FOLLOW.. EDIL GOMEZ
--- NOTE | 2019-02-23 11:58 | NUR ---
MAXIE EFF AT THIS TIME. WILL CONT TO MONITOR. CALL LIGHT IN REACH.
[2019-02-23 12:00] VITALS: BP 98/57
[2019-02-23 16:00] VITALS: BP 97/53
[2019-02-23 20:00] VITALS: BP 110/64
--- NOTE | 2019-02-23 22:25 | NUR ---
NORCO GIVEN FOR C/O OF BACK PAIN OF 7/10 AND INSOMNIA. NORCO AND RESTORIL GIVEN AT THIS TIME. WILL CONT TO MONITOR. CALL LIGHT IN REACH.
--- NOTE | 2019-02-23 23:06 | NUR ---
24 HR chart check completed.
--- NOTE | 2019-02-23 23:20 | NUR ---
PATIENT STATED NORCO AND RESTORIL WERE EFFECTIVE. PATIENT MOVED TO BED. CALL LIGHT WITHIN REACH. BED LOCKED AND IN LOWEST POSITION. SIDE RAILS UP X2.
[2019-02-24] VITALS (7 sets, daily range): BP systolic 94–116; BP diastolic 63–74
--- NOTE | 2019-02-24 05:02 | NUR ---
PATIENT REQUESTED ZOFRAN FOR CO NAUSEA. ZOFRAN GIVEN. WILL ASSESS FOR EFFECTIVENESS.
--- NOTE | 2019-02-24 05:55 | NUR ---
PATIENT STATED ZOFRAN WAS EFFECTIVE AND THAT SHE WAS FEELING BETTER. NO S/S OF DISCOMFORT.
--- NOTE | 2019-02-24 10:26 | NUR ---
PHYSICAL THERAPY PT SITTING IN RECLINER WITH FAMILY MEMBER PRESENT UPON ARRIVAL. PT PRESENT WITH 3L O2 VIA NASAL CANULA. PT IDENTIFIED BY NAME AND . PT AGREED TO ALL PHYSICAL THERAPY TREATMENT THIS VISIT. PT PEROFRMED STS FROM RECLINER WITH VC'S FOR PPROPER SAFETY AND TECHNIQUE. PT GAIT TRAINED 10 FT X2 WITH SAFETY NEGOTIATING O2 TUBINGWITH SBA. PT PERFORMES STS TO AND FROM TOILET WITH USE OF ONE HAND RAIL AND NO LOB. PT PEROFRMED STS TO AND FROM RECLINER WITH SBA 3X WITH VC'S FOR SAFETY AND TEHCIQUE. PT REPROTS AFTER 3 STS " MY LEGS ARE TIRED." PT SITTING IN RECLINER WITH BODY ALARM ON, CALL LIGHT AND PHONE SITTING ON BED TO PTS LEFT SIDE WITH IN ARMS REACH. PT SEEN 1:l FOR 15MINS THIS A.M. JOSEPH HERNANDEZ PTA
--- NOTE | 2019-02-24 11:29 | NUR ---
PT PLANS TO RETURN HOME ON DISCHARGE. DOES WANT OV. REFERRAL SENT TO [facility],
--- NOTE | 2019-02-24 15:46 | NUR ---
Per request of Dr. Bledsoe, oxygen was titrated from 3L NC. On 3L SpO2 100% was titrated to RA, SpO2 on RA 93% HR 84. Patient did not desat during conversation and showed no signs of SOB or distress. Will continue to monitor.
--- NOTE | 2019-02-24 20:20 | NUR ---
ZOFRAN GIVEN PER ORDER FOR NAUSEA.
--- NOTE | 2019-02-24 21:30 | NUR ---
FRITZ EFFECTIVE. PT. ATE NIGHT SNACK BSG 54 MILK, OJ, MO CACKERS WITH PEANUT BUTTER EATEN WILL RECHECK BSG.
--- NOTE | 2019-02-24 22:15 | NUR ---
BSG 99 PT. FEELING BETTER. BILATERAL LOWER LEG DRESSING CHANGED PER ORDER. PT. TOLERATED WELL BUT STILL HAVING GENERAL BONE DISCOMFORT.
--- NOTE | 2019-02-24 22:38 | NUR ---
NORCO GIVEN PER ORDER FOR DISCOMFORT RATED "6"PT. STATED "MY BONES ACHE TODAY".
[2019-02-24] MEDS ORDERED: SYMB160 INH (23:34)
[2019-02-24] MEDS ORDERED: PROAIR HFA8.5 GM INH (23:35)
--- NOTE | 2019-02-24 23:44 | NUR ---
called dr. Gaines and notified him pt. requesting breathing treatment. pt. states unable to move any mucous in her lungs and she normally has inhalers at home that she uses. Dr. Gaines going to put breathing treatment in.
[2019-02-25] VITALS: BP 107/86
--- NOTE | 2019-02-25 03:29 | NUR ---
24 HR chart check completed.
[2019-02-25 06:45] VITALS: BP 112/70
[2019-02-25 07:30] LABS: CREATININE 1.12 mg/dL (0.55-1.02); POTASSIUM 3.2 mmol/L (3.5-5.1); TOTAL PROTEIN 6.7 gm/dL (6.4-8.2)
[2019-02-25 07:41] LABS: BASO # 0.1 10*3/uL (0.0-0.1); BASO % 0.7 % (0.0-1.0); EOS # 0.2 10*3/uL (0.0-0.4); EOS % 2.5 % (1.0-4.0); HEMATOCRIT 39.3 % (37.0-47.0); HEMOGLOBIN 12.8 g/dl (12.0-16.0); LYMPH # 1.5 10*3/uL (1.3-4.4); LYMPH % 21.2 % (27.0-41.0); MEAN CORPUSCULAR HGB 32.9 pg (27.0-31.0); MEAN CORPUSCULAR HGB CONC 32.6 g/dl (33.0-37.0); MEAN PLATELET VOLUME 10.4 fl (9.6-12.3); MONO # 0.5 10*3/uL (0.1-1.0); MONO % 6.5 % (3.0-9.0); NEUT % 68.7 % (47.0-73.0); PLATELET COUNT AUTOMATED 133 10*3/uL (130-400); RED BLOOD COUNT 3.89 10*6/uL (4.10-5.10); RED CELL DISTRI WIDTH 15.8 % (0-14.5); WHITE BLOOD COUNT 7.3 10*3/uL (4.8-10.8)
--- NOTE | 2019-02-25 09:10 | NUR ---
PHYSICAL THERAPY Patient seen this am 1:1 for therapy visit and was sitting up in bedside chair upon therapist arrival. Patient reports no c/o's pain and presents with continuous O2-2L via NC. Patient transfers sit to stand SBA and ambulates CGA, no AD, 40'x 2, demonstrating very slow, cautious gait pattern. Patient educated on safe navigation with extended O2 hose to avoid tripping, stepping on or getting tangled up in long hose during standing activities and returned to bedside chair with mild fatigue and no LOB. Patient remained in chair with call light, telephone and body alarm for safety. Taiwo continue per POC as tolerated, total treatment time 17 minutes. Anderson Padilla, ADMINISTRATIVE MEDICAL DIRECTOR
[2019-02-25] MEDS ORDERED: APRESOLINE10 MG PO (10:13)
[2019-02-25] MEDS ORDERED: COREG12.5 M1 PO (10:13)
[2019-02-25] MEDS ORDERED: IMDUR SA60 M1 PO (10:13)
--- NOTE | 2019-02-25 11:58 | NUR ---
pt assessed for home oxygen. pt did not qualify pt at rest spo2 94% ra, hr 80, b/p 112/70 pt ambulated spo2 90-93% ra pt at rest spo2 92% ra, hr 85, rr 16, b/p 105/92 rn notified and notified
[2019-02-25 12:00] VITALS: BP 105/92
--- NOTE | 2019-02-25 12:52 | NUR ---
PT WILL RETURN HOME WITH OV ON DISCHARGE. WILL CONTINUE TO FOLLOW.
--- NOTE | 2019-02-25 13:16 | NUR ---
PHYSICAL THERAPY CO-SIGN I approve of the Physical Therapy notes written above. RADHA GONZALEZ PT,DPT
--- NOTE | 2019-02-25 14:05 | NUR ---
Discharge instructions reviewed with patient/family. Patient receptive and verbalizes understanding. Follow-up care arranged. Written instructions given to patient/family. Patient was educated on prescription changes and follow up appointments with Dr. Amezquita and podiatry. Patient was wheeled from unit by staff member with her daughter present. All patients personal belongings were accounted for. KAREL TURNER
--- NOTE | 2019-02-25 14:49 | NUR ---
[facility] AND INFORMED THEM PT WAS BEING DISCHARGED TODAY.
== END 2019-02-25 14:05 | disposition home health service (06) | DRG 291 ==
LOC: ED 00:17 → 5E 02:31
PROVIDERS: Emergency Medicine; Internal Medicine; ADMIT Internal Medicine
DX: I13.0 Hypertensive heart and chronic kidney disease with heart failure and stage 1 through stage 4 chronic kidney disease, or unspecified chronic kidney disease (principal); I50.43 Acute on chronic combined systolic (congestive) and diastolic (congestive) heart failure; E44.0 Moderate protein-calorie malnutrition; N18.3 Chronic kidney disease, stage 3 (moderate); E87.6 Hypokalemia; J44.9 Chronic obstructive pulmonary disease, unspecified; E03.9 Hypothyroidism, unspecified; I25.10 Atherosclerotic heart disease of native coronary artery without angina pectoris; E78.5 Hyperlipidemia, unspecified; E11.22 Type 2 diabetes mellitus with diabetic chronic kidney disease; F17.210 Nicotine dependence, cigarettes, uncomplicated; M54.5 Low back pain; E83.41 Hypermagnesemia; S81.802A Unspecified open wound, left lower leg, initial encounter; X58.XXXA Exposure to other specified factors, initial encounter; Y93.89 Activity, other specified; Y92.89 Other specified places as the place of occurrence of the external cause; Y99.8 Other external cause status; Z71.6 Tobacco abuse counseling; Z99.81 Dependence on supplemental oxygen; Z86.73 Personal history of transient ischemic attack (TIA), and cerebral infarction without residual deficits; I25.2 Old myocardial infarction; Z98.49 Cataract extraction status, unspecified eye; Z80.3 Family history of malignant neoplasm of breast; Z82.3 Family history of stroke; Z83.3 Family history of diabetes mellitus; Z82.49 Family history of ischemic heart disease and other diseases of the circulatory system; Z79.82 Long term (current) use of aspirin; Z79.899 Other long term (current) drug therapy; Z79.890 Hormone replacement therapy; Z79.02 Long term (current) use of antithrombotics/antiplatelets; Z68.26 Body mass index [BMI] 26.0-26.9, adult

== ENCOUNTER 2019-03-04 14:00 | Inpatient (IN) | payer MEDICARE ==
[~2019-03-04] VITALS: Ht 167.6 cm; Wt 67.2 kg
--- NOTE | ~2019-03-04 | EKG ---
[place], [place] ELECTROCARDIOGRAM REPORT NAME: CHEMA ALEXIS UNIT #: [id number] ROOM: [facility] DOCTOR: CARLOTTA DRAFT REPORT BIRTHDATE: [birth year] [facility] Test Date: 2019-03-04 Test Time: 20:26:35 Pat Name: CHEMA ALEXIS Department: Room: [facility] Gender: F Shoe Laster: Sabrina Leal : 1945 Requested By: JAY SCHAFER Order Number: [id number] Reading MD: Camacho De La Cruz MD Measurements Intervals [place] Rate: 84 P: [place]: QRS: -50 QRSD: 133 T: 105 QT: 426 QTc: 504 Interpretive Statements Afib/flutter and ventricular-paced rhythm No further analysis attempted due to paced rhythm Baseline wander in lead(s) V5 Compared to ECG 02/23/2019 02:39:51 AV dual-paced complex(es) or rhythm no longer present Electronically Signed On 03-05-2019 13:39:49 PDT by Camacho De La Cruz MD CM:EKGRPT:ELECTROCARDIOGRAM REPORT [id number] [id number] JAY LAGUERRE DRAFT REPORT JAY SCHAFER MD
--- NOTE | ~2019-03-04 | EKG ---
[place], [place] ELECTROCARDIOGRAM REPORT NAME: CHEMA ALEXIS UNIT #: [id number] ROOM: 502 DOCTOR: CARLOTTA DRAFT REPORT BIRTHDATE: [birth year] [facility] Test Date: 2019-03-04 Test Time: 17:23:56 Pat Name: CHEMA ALEXIS Department: Room: [facility] Gender: F Loan Reviewer: Sabrina Leal : 1945 Requested By: JAY SCHAFER Order Number: [id number] Reading MD: Camacho De La Cruz MD Measurements Intervals [place] Rate: 86 P: 0 [place]: 90 QRS: -85 QRSD: 207 T: 112 QT: 520 QTc: 622 Interpretive Statements Ventricular-paced complexes No further analysis attempted due to paced rhythm Compared to ECG 02/23/2019 02:39:51 AV dual-paced complex(es) or rhythm no longer present Electronically Signed On 03-05-2019 13:38:56 PDT by Camacho De La Cruz MD CM:EKGRPT:ELECTROCARDIOGRAM REPORT [id number] JAY SCHAFER MD EPIPHANY DRAFT REPORT JAY SCHAFER MD
--- NOTE | ~2019-03-04 | EKG ---
[place], [place] ELECTROCARDIOGRAM REPORT NAME: CHEMA ALEXIS UNIT #: [id number] ROOM: 502 DOCTOR: CARLOTTA DRAFT REPORT BIRTHDATE: [birth year] [facility] Test Date: 2019-03-04 Test Time: 14:05:44 Pat Name: CHEMA ALEXIS Department: Room: [facility] Gender: F Food Preparation Supervisor: : 1945 Requested By: JAY SCHAFER Order Number: [id number] Reading MD: Camacho De La Cruz MD Measurements Intervals [place] Rate: 99 P: 0 AK: 45 QRS: -84 QRSD: 204 T: 108 QT: 468 QTc: 601 Interpretive Statements Ventricular-paced complexes No further analysis attempted due to paced rhythm Compared to ECG 02/23/2019 02:39:51 AV dual-paced complex(es) or rhythm no longer present Electronically Signed On 03-05-2019 13:38:19 PDT by Camacho De La Cruz MD CM:EKGRPT:ELECTROCARDIOGRAM REPORT [id number] [id number] JAY NAJERAANY DRAFT REPORT JAY SCHAFER MD
[2019-03-04 14:00] VITALS: BP 100/60
[~2019-03-04 14:00] MED LIST changes: +APRESOLINE10 MG PO; +IMDUR SA60 M1 PO; +ISOSORBIDE MONO10 MG PO; +ONDANSETRON HYDR4 MG PO; +PROAIR HFA8.5 GM INH
[2019-03-04 14:30] LABS: BASO # 0.1 10*3/uL (0.0-0.1); BASO % 0.8 % (0.0-1.0); EOS # 0.1 10*3/uL (0.0-0.4); EOS % 1.5 % (1.0-4.0); HEMATOCRIT 40.3 % (37.0-47.0); HEMOGLOBIN 13.2 g/dl (12.0-16.0); LYMPH # 1.8 10*3/uL (1.3-4.4); LYMPH % 20.6 % (27.0-41.0); MEAN CELL VOLUME 100.8 fl (81.0-99.0); MEAN CORPUSCULAR HGB CONC 32.8 g/dl (33.0-37.0); MONO # 0.5 10*3/uL (0.1-1.0); MONO % 5.6 % (3.0-9.0); NEUT # 6.1 10*3/uL (2.3-7.9); PLATELET COUNT AUTOMATED 179 10*3/uL (130-400); RED CELL DISTRI WIDTH 15.9 % (0-14.5); WHITE BLOOD COUNT 8.6 10*3/uL (4.8-10.8)
[2019-03-04 14:41] LABS: ACT PARTIAL THROMBO TIME 28.2 SECONDS (20.0-32.1); INTERNATIONAL NORM RATIO 1.1 (2.0-3.5)
[2019-03-04 14:51] LABS: ALBUMIN 3.1 gm/dl (3.1-4.5); CREATININE 1.26 mg/dL (0.55-1.02); POTASSIUM 2.9 mmol/L (3.5-5.1); TOTAL PROTEIN 7.1 gm/dL (6.4-8.2)
[2019-03-04 14:52] LABS: TROPONIN I 0.024 ng/ml (<0.045)
--- NOTE | 2019-03-04 15:26 | NUR ---
Nurse to nurse report from Re PEGUERO. Patient sitting up in bed with television on. No needs voiced. Patient does not want wraps removed from her lower leg because they were recently dressed. Will continue to monitor.
[2019-03-04 16:00] VITALS: BP 135/82
--- NOTE | 2019-03-04 16:00 | NUR ---
A 74, admitted to 5E, under the services of JEFFREY Kapadia DO with a diagnosis of SEPSIS, RLL PNEUMONIA. Chief complaint is POX 93% AT HOME ON ROOM AIR, SENT BY HOME HEALTH VISITOR. Patient arrived via ambulatory from ER. Monitor applied. Initial assessment completed. Vital signs taken and recorded. JEFFREY KAPADIA DO notified of admission to the unit. Orders received. See assessment for past medical history, medications and allergies. Patient and/or family oriented to unit. [facility] visitation policy reviewed. Clothing/patient valuable form completed. RAN DUMONT
--- NOTE | 2019-03-04 16:05 | NUR ---
ARRIVED TO FLOOR WITH BILAT LEGS WRAPPED WITH GUAZE, TUBI SOAKING TANK WORKER, JORDAN BANDAGE. REFUSED TO REMOVE DRESSINGS FOR PICS/MEASUREMENTS ON ADMISSION TO FLOOR. PT STATES HER DRESSINGS WERE LAST DONE ON 03/03 BY HER HOME HEALTH NURSE. AWARE NURSING IS UNABLE TO ASSESS LEG WOUNDS.
--- NOTE | 2019-03-04 16:23 | NUR ---
ZITHROMAX INFUSING PER ORDERS. PT DEVELOPED NAUSEA. ZITHROMAX SLOWED, IV ZOFRAN GIVEN. WILL MONITOR. CALL LIGHT IN REACH. NURSE AT BEDSIDE FOR ADMISSION ASSESSMENT.
--- NOTE | 2019-03-04 16:51 | NUR ---
PT UNABLE TO PROVIDE MED LIST AT THIS TIME.
--- NOTE | 2019-03-04 16:58 | NUR ---
VOICING RELIEF OF NAUSEA FOLLOWING ZOFRAN. ZOFRAN EFFECTIVE FOR COMPLAITNS. CALL LIGHT IN REACH. ABX INFUSING WITH EASE.
[2019-03-04] MEDS ORDERED: HYDRALAZINE10 MG PO (17:58)
--- NOTE | 2019-03-04 17:58 | NUR ---
MED REC UPDATED. AWARE.
[2019-03-04 20:00] VITALS: BP 108/79
--- NOTE | 2019-03-04 21:25 | NUR ---
MEDICATED WITH NORCO FOR C/O CHRONIC BACK PAIN. SEE MAR. CALL LIGHT IN REACH.
--- NOTE | 2019-03-04 21:27 | NUR ---
AWARE THAT MED REC WAS UPDATED BUT NO MEDS HAVE BEEN RESTARTED. SAID SHE WOULD LOOK AT IT.
--- NOTE | 2019-03-04 21:56 | NUR ---
BP MEDS HELD FOR BP 108/79 HR 80 PER CM
--- NOTE | 2019-03-04 22:51 | NUR ---
SLEEPING, NORCO SEEMS TO BE EFFECTIVE FOR COMPLAINTS OF BACK PAIN. CALL LIGHT IN REACH. NO SXS OF DISTRESS NOTED.
--- NOTE | 2019-03-04 23:00 | NUR ---
ASSUMED CARE FOR THIS PT AT THIS TIME. PT AWAKE IN BED AT THIS TIME. C/O BACK PAIN D/T COUGHING. NO PRN PAIN MEDS AVAILABLE AT THIS TIME. CALL LIGHT IN REACH.
[2019-03-05] VITALS: BP 132/68
--- NOTE | 2019-03-05 02:00 | NUR ---
DR. HERRERA NOTIFIED OF PT'S 22OO MEDS NOT GIVEN AND POTASSIUM OF 2.9. OK TO GIVE IMDUR AND COREG AT THIS TIME BUT HOLD APRESOLINE. WILL ORDER KDUR.
--- NOTE | 2019-03-05 02:24 | NUR ---
PT MEDICATED W/NORCO FOR C/O BACK PAIN.
--- NOTE | 2019-03-05 03:00 | NUR ---
PT STATES THAT NORCO WAS EFFECTIVE FOR BACK PAIN RELIEF. RESTING QUIETLY IN BED AT THIS TIME.
--- NOTE | 2019-03-05 03:38 | NUR ---
24 HR chart check completed.
[2019-03-05 05:58] VITALS: BP 96/56
[2019-03-05 06:31] LABS: BASO # 0.1 10*3/uL (0.0-0.1); BASO % 0.7 % (0.0-1.0); EOS # 0.2 10*3/uL (0.0-0.4); EOS % 2.4 % (1.0-4.0); HEMATOCRIT 38.9 % (37.0-47.0); HEMOGLOBIN 12.4 g/dl (12.0-16.0); LYMPH % 27.1 % (27.0-41.0); MEAN CELL VOLUME 103.7 fl (81.0-99.0); MEAN CORPUSCULAR HGB 33.1 pg (27.0-31.0); MEAN CORPUSCULAR HGB CONC 31.9 g/dl (33.0-37.0); MEAN PLATELET VOLUME 10.6 fl (9.6-12.3); MONO # 0.5 10*3/uL (0.1-1.0); MONO % 6.5 % (3.0-9.0); NEUT # 4.7 10*3/uL (2.3-7.9); NEUT % 63.2 % (47.0-73.0); PLATELET COUNT AUTOMATED 165 10*3/uL (130-400); RED BLOOD COUNT 3.75 10*6/uL (4.10-5.10); RED CELL DISTRI WIDTH 16.5 % (0-14.5); WHITE BLOOD COUNT 7.5 10*3/uL (4.8-10.8)
[2019-03-05 06:40] LABS: ALBUMIN 2.9 gm/dl (3.1-4.5); POTASSIUM 3.4 mmol/L (3.5-5.1)
[2019-03-05 06:44] LABS: CREATININE 1.23 mg/dL (0.55-1.02); PHOSPHOROUS 4.1 mg/dL (2.5-4.9); TOTAL PROTEIN 6.5 gm/dL (6.4-8.2)
[2019-03-05 07:27] LABS: INTERNATIONAL NORM RATIO 1.1 (2.0-3.5)
[2019-03-05 08:00] VITALS: BP 118/74
[2019-03-05 12:00] VITALS: BP 110/68
[2019-03-05 16:00] VITALS: BP 102/61
--- NOTE | 2019-03-05 19:30 | NUR ---
24 HOUR CHART CHECK COMPLETE.
[2019-03-05 20:00] VITALS: BP 120/78; BP 123/81
--- NOTE | 2019-03-05 20:33 | NUR ---
SPOKE WITH DR. JACKSON REGARDING PTS NIGHT TIME MEDICATION. PTS BP 120/[address] JACKSON STATES TO HOLD THE APRESOLINE AND TO GIVE COREG ORDERED TONIGHT, DUE TO PATIENTS PAST LOW BP READINGS.
[2019-03-06] VITALS: BP 106/92
[2019-03-06 06:11] LABS: BASO # 0.1 10*3/uL (0.0-0.1); BASO % 0.8 % (0.0-1.0); EOS # 0.2 10*3/uL (0.0-0.4); EOS % 2.2 % (1.0-4.0); HEMATOCRIT 38.7 % (37.0-47.0); HEMOGLOBIN 12.2 g/dl (12.0-16.0); LYMPH # 1.7 10*3/uL (1.3-4.4); LYMPH % 23.8 % (27.0-41.0); MEAN CELL VOLUME 103.8 fl (81.0-99.0); MEAN CORPUSCULAR HGB 32.7 pg (27.0-31.0); MEAN CORPUSCULAR HGB CONC 31.5 g/dl (33.0-37.0); MEAN PLATELET VOLUME 10.6 fl (9.6-12.3); MONO # 0.5 10*3/uL (0.1-1.0); MONO % 6.2 % (3.0-9.0); NEUT # 4.8 10*3/uL (2.3-7.9); NEUT % 66.7 % (47.0-73.0); PLATELET COUNT AUTOMATED 154 10*3/uL (130-400); RED BLOOD COUNT 3.73 10*6/uL (4.10-5.10); RED CELL DISTRI WIDTH 16.4 % (0-14.5); WHITE BLOOD COUNT 7.2 10*3/uL (4.8-10.8)
[2019-03-06 06:35] LABS: ALBUMIN 2.8 gm/dl (3.1-4.5); CREATININE 1.37 mg/dL (0.55-1.02); POTASSIUM 3.3 mmol/L (3.5-5.1); TOTAL PROTEIN 6.4 gm/dL (6.4-8.2)
[2019-03-06 08:00] VITALS: BP 127/87
[2019-03-06 12:00] VITALS: BP 114/79
[2019-03-06] MEDS ORDERED: POTASSIUM CHLO20 ME3 PO (12:35)
[2019-03-06] MEDS ORDERED: LASIX40 MG PO (12:35)
--- NOTE | 2019-03-06 14:43 | NUR ---
PT DISCHARGED HOME AT THIS TIME WITH HER FAMILY. DISCHARGE INSTRUCTIONS REVIEWED AND HEPLOCK REMOVED.
--- NOTE | 2019-03-07 09:41 | NUR ---
PHYSICAL THERAPY Nursing screen received and chart reviewed. Patient discharged 03/06/19. Thank you. Aliza Badillo,PT,DPT.
--- NOTE | 2019-03-07 13:21 | NUR ---
[facility] notified that patient was discharged to home
--- NOTE | 2019-03-07 17:07 | NUR ---
Nursing screen was received. Patient has since been discharged from hospital. Thank you. Kailee Carrera, OTR/L
== END 2019-03-06 14:45 | disposition home health service (06) | DRG 871 ==
LOC: ED 14:00 → EDHOLD 15:13 → 5E 15:50
PROVIDERS: Emergency Medicine; Family Medicine; Student in an Organized Health Care Education/Training Program; ADMIT Internal Medicine
DX: A41.9 Sepsis, unspecified organism (principal); J18.1 Lobar pneumonia, unspecified organism; I50.43 Acute on chronic combined systolic (congestive) and diastolic (congestive) heart failure; I13.0 Hypertensive heart and chronic kidney disease with heart failure and stage 1 through stage 4 chronic kidney disease, or unspecified chronic kidney disease; E44.0 Moderate protein-calorie malnutrition; I25.10 Atherosclerotic heart disease of native coronary artery without angina pectoris; E11.22 Type 2 diabetes mellitus with diabetic chronic kidney disease; J43.9 Emphysema, unspecified; D53.9 Nutritional anemia, unspecified; F17.210 Nicotine dependence, cigarettes, uncomplicated; E87.6 Hypokalemia; G89.29 Other chronic pain; E03.9 Hypothyroidism, unspecified; E83.41 Hypermagnesemia; N18.3 Chronic kidney disease, stage 3 (moderate); M54.5 Low back pain; Z88.8 Allergy status to other drugs, medicaments and biological substances; Z79.82 Long term (current) use of aspirin; Z79.4 Long term (current) use of insulin; Z79.899 Other long term (current) drug therapy; Z95.5 Presence of coronary angioplasty implant and graft; Z99.81 Dependence on supplemental oxygen; Z71.6 Tobacco abuse counseling; I25.2 Old myocardial infarction; Z80.3 Family history of malignant neoplasm of breast; Z79.51 Long term (current) use of inhaled steroids; Z68.23 Body mass index [BMI] 23.0-23.9, adult

== ENCOUNTER → 2019-04-07 | Outpatient (CLI) | payer MEDICARE ==
[~2019-04-07] MED LIST changes: +HYDRALAZINE10 MG PO; +POTASSIUM CHLO20 ME3 PO
[2019-04-07 11:03] LABS: CREATININE 1.75 mg/dL (0.55-1.02); POTASSIUM 4.7 mmol/L (3.5-5.1)
== END | disposition home or self-care (01) ==
LOC: LAB 09:59
PROVIDERS: Internal Medicine Cardiovascular Disease
DX: I49.9 Cardiac arrhythmia, unspecified (principal); I51.9 Heart disease, unspecified; R06.02 Shortness of breath

== ENCOUNTER → 2019-04-29 | Outpatient (CLI) | payer MEDICARE | END | disposition home or self-care (01) | LOC: CT 11:00 | DX: I13.2 Hypertensive heart and chronic kidney disease with heart failure and with stage 5 chronic kidney disease, or end stage renal disease (principal); I50.43 Acute on chronic combined systolic (congestive) and diastolic (congestive) heart failure; N18.3 Chronic kidney disease, stage 3 (moderate); J43.8 Other emphysema; J43.2 Centrilobular emphysema; R63.4 Abnormal weight loss; R19.7 Diarrhea, unspecified ==

== ENCOUNTER 2019-05-07 22:59 | Inpatient (IN) | payer MEDICARE ==
[~2019-05-07] VITALS: Ht 152.4 cm; Wt 58.5 kg
[2019-05-07 23:00] VITALS: BP 168/104
[2019-05-07 23:17] LABS: BASO # 0.1 10*3/uL (0.0-0.1); BASO % 0.6 % (0.0-1.0); EOS # 0.1 10*3/uL (0.0-0.4); EOS % 0.6 % (1.0-4.0); HEMATOCRIT 41.1 % (37.0-47.0); HEMOGLOBIN 13.6 g/dl (12.0-16.0); LYMPH # 2.3 10*3/uL (1.3-4.4); LYMPH % 22.5 % (27.0-41.0); MEAN CELL VOLUME 100.5 fl (81.0-99.0); MEAN CORPUSCULAR HGB 33.3 pg (27.0-31.0); MEAN CORPUSCULAR HGB CONC 33.1 g/dl (33.0-37.0); MEAN PLATELET VOLUME 11.1 fl (9.6-12.3); MONO # 0.7 10*3/uL (0.1-1.0); MONO % 7.2 % (3.0-9.0); NEUT # 7.1 10*3/uL (2.3-7.9); NEUT % 68.7 % (47.0-73.0); NUCLEATED RED BLOOD CELL 0.1 10*3/uL (0.0-0.0); NUCLEATED RED BLOOD CELL 0.5 % (0.0-0.0); PLATELET COUNT AUTOMATED 141 10*3/uL (130-400); RED BLOOD COUNT 4.09 10*6/uL (4.10-5.10); RED CELL DISTRI WIDTH 17.7 % (0-14.5); WHITE BLOOD COUNT 10.3 10*3/uL (4.8-10.8)
[2019-05-07 23:33] LABS: ACT PARTIAL THROMBO TIME 30.5 SECONDS (20.0-32.1); INTERNATIONAL NORM RATIO 1.2 (2.0-3.5)
[2019-05-07 23:37] LABS: ALBUMIN 3.2 gm/dl (3.1-4.5); ALKALINE PHOSPHATASE 77 U/L (45-117); BUN 41 mg/dl (7-24); CHLORIDE 110 mmol/L (98-107); CREATININE 2.85 mg/dL (0.55-1.02); SGOT/AST 24 IU/L (3-35); SGPT/ALT 19 U/L (12-78); SODIUM 137 mmol/L (136-145); TOTAL PROTEIN 7.1 gm/dL (6.4-8.2)
[2019-05-07 23:39] LABS: TROPONIN I < 0.015 ng/ml (<0.045)
--- NOTE | 2019-05-07 23:51 | NUR ---
PER MD VERBAL ORDER PT PLACED ON NS @40ML/HR.
[2019-05-07 23:58] LABS: BILIRUBIN 1+ (NEGATIVE); BLOOD TRACE-LYSED (NEGATIVE); CLARITY CLOUDY (CLEAR); COLOR YELLOW (YELLOW); GLUCOSE NEGATIVE (NEGATIVE); KETONE NEGATIVE (NEGATIVE); LEUKO ESTERASE 2+ (NEGATIVE); NITRITE NEGATIVE (NEGATIVE); PH 5.5 (5.0-9.0); UROBILINOGEN 0.2 E.U./dl (0.2-1.0)
[2019-05-08] VITALS (8 sets, daily range): BP systolic 70–108; BP diastolic 0–64
[2019-05-08 00:07] LABS: BACTERIA 4+
[2019-05-08] MEDS ORDERED: FUROSEMIDE40 MG PO (00:07)
[2019-05-08] MEDS ORDERED: PLAVIX75 M1 PO (00:09)
[2019-05-08] MEDS ORDERED: ASPIRIN CHEWABL81 MG PO (00:09)
[2019-05-08] MEDS ORDERED: AMIODARONE HYD200 MG PO (00:10)
[2019-05-08] MEDS ORDERED: NITROSTAT0.4 MG SL (00:10)
[2019-05-08] MEDS ORDERED: COREG6.25 MG PO (00:11)
[2019-05-08] MEDS ORDERED: LOVASTATIN40 MG PO (00:11)
[2019-05-08 00:12] LABS: WBC TNTC wbc/hpf (0-5)
[2019-05-08] MEDS ORDERED: NEURONTIN300 MG PO (00:12)
[2019-05-08] MEDS ORDERED: HYDROCODONE-AC1 EAC1 PO (00:12)
[2019-05-08] MEDS ORDERED: GLIPIZIDE5 MG PO (00:13)
[2019-05-08] MEDS ORDERED: POTASSIUM CHLO20 ME4 PO (00:13)
[2019-05-08] MEDS ORDERED: ZOFRAN4 MG PO (00:13)
--- NOTE | 2019-05-08 01:15 | NUR ---
pt family left password "[email or web address]".
--- NOTE | 2019-05-08 01:16 | NUR ---
A 74[facility] under the services of GWYN Guevara DO with a diagnosis of AMBULATORY DYSFUNCTION, ARF, COPD. Chief complaint is MULTIPLE COMPLAINTS. Patient arrived via ambulance from ER. Monitor applied. Initial assessment completed. Vital signs taken and recorded. GWYN GUEVARA DO notified of admission to the unit. Orders received. See assessment for past medical history, medications and allergies. Patient and/or family oriented to unit. [facility] visitation policy reviewed. Clothing/patient valuable form completed. ISAAK FISCHER
--- NOTE | 2019-05-08 01:20 | NUR ---
NICOTINE PATCH PLACED ON PT MAI.
--- NOTE | 2019-05-08 02:00 | NUR ---
PT IS ALERT AND AWAKE AT THIS TIME. UPON ASSESSMENT, UNABLE TO HEAR BP IN PT RIGHT ARM. TRIED IN LEFT ARM WITH A BP OF 78/48. ANOTHER RN VERIFIED BP OF 80/50 IN LEFT ARM, UNABLE TO GET PRESSURE IN RIGHT. PT C/O DIZZINESS UPON STANDING, NOT AT REST. DR. MOFFETT NOTIFIED OF 80/50 MANUAL PRESSURE. ALSO NOTIFIED OF CRACKLES TO POSTERIOR BASES, WELL 3+ PITTING EDEMA BLE. ORDERED TO MOVE PT TO ICU AT THIS TIME.
--- NOTE | 2019-05-08 02:30 | NUR ---
DR. MOFFETT NOTIFIED OF NEED FOR WOUND ORDERS.
--- NOTE | 2019-05-08 05:35 | NUR ---
DR MEDINA AND DR VAUGHN WHO IS COVERING FOR DR SANCHEZ WERE NOTIFIED OF CONSULTS.
[2019-05-08 05:53] LABS: CREATININE 2.71 mg/dL (0.55-1.02); PHOSPHOROUS 4.9 mg/dL (2.5-4.9); POTASSIUM 3.6 mmol/L (3.5-5.1)
[2019-05-08 06:31] LABS: BASO % 0.4 % (0.0-1.0); EOS % 0.4 % (1.0-4.0); HEMATOCRIT 39.3 % (37.0-47.0); HEMOGLOBIN 12.8 g/dl (12.0-16.0); LYMPH # 2.1 10*3/uL (1.3-4.4); LYMPH % 22.4 % (27.0-41.0); MEAN CELL VOLUME 99.5 fl (81.0-99.0); MEAN CORPUSCULAR HGB 32.4 pg (27.0-31.0); MEAN CORPUSCULAR HGB CONC 32.6 g/dl (33.0-37.0); MONO # 0.6 10*3/uL (0.1-1.0); MONO % 6.9 % (3.0-9.0); NEUT # 6.4 10*3/uL (2.3-7.9); NEUT % 69.5 % (47.0-73.0); PLATELET COUNT AUTOMATED 118 10*3/uL (130-400); RED BLOOD COUNT 3.95 10*6/uL (4.10-5.10); RED CELL DISTRI WIDTH 17.3 % (0-14.5); WHITE BLOOD COUNT 9.2 10*3/uL (4.8-10.8)
--- NOTE | 2019-05-08 07:03 | NUR ---
Shift chart check completed.
[2019-05-08] MEDS ORDERED: APRESOLINE10 MG PO (07:18)
[2019-05-08] MEDS ORDERED: LOPERAMIDE HCL2 MG PO (07:19)
[2019-05-08] MEDS ORDERED: PAXIL20 M1 PO (07:23)
[2019-05-08] MEDS ORDERED: ATARAX,VISTARIL10 MG PO (07:27)
[2019-05-08] MEDS ORDERED: ALDACTAZIDE 251 EACH PO (07:30)
[2019-05-08] MEDS ORDERED: Synthroid,Levo25 MCG PO (07:33)
[2019-05-08] MEDS ORDERED: VENT7GM INH (07:39)
[2019-05-08] MEDS ORDERED: SYMB160 INH (07:41)
--- NOTE | 2019-05-08 07:41 | NUR ---
MED REC UPDATED PER MED CLAIM HX THE LIST THE FAMILY BROUGHT IN IS FROM 05/2018 & [facility] IS CLOSED TODAY
--- NOTE | 2019-05-08 08:05 | NUR ---
DR KILPATRICK ROUNDED - AWARE OF MED REC UPDATED PER MED CLAIM HX & HE PULLED DC SUMMARY FROM FEB 2019 & ONLY THING WE ADDED WAS IMDUR. OTHERS WERE PER MOST UPDATED FILLS
[2019-05-08] MEDS ORDERED: Imdur SA60 MG PO (08:21)
--- NOTE | 2019-05-08 10:44 | NUR ---
DR SANTIAGO HERE TO SEE PATIENT CASE REVIEWED
--- NOTE | 2019-05-08 10:53 | NUR ---
PHYSICAL THERAPY PATIENT SLEEPING TODAY AND NOT AWAKE FOR EVALUATION. WILL ATTEMPT TOMORROW. THANK YOU FOR REFERRAL AUGUSTINE NEWMAN PT
--- NOTE | 2019-05-08 11:24 | NUR ---
PT WASHED UP COMPLETE AFTER INCONTINENT OF LIQUID STOOL. DOUBLE STOCKINGETTE PLACED WADE TOO TIGHT DUE TO EDEMA. FAMILY HERE NOW TO VISIT
--- NOTE | 2019-05-08 13:32 | NUR ---
PALLIATIVE CALLED ABOUT CONSULT
--- NOTE | 2019-05-08 19:45 | NUR ---
PT PLEASANT, NO DISTRESS, VSS. ASSISTED TO POSITION OF COMFORT ON HER LT SIDE. SHE IS WATCHING TV AT PRESENT TIME.
[2019-05-09] VITALS (7 sets, daily range): BP systolic 91–116; BP diastolic 56–77
[2019-05-09 05:09] LABS: ALBUMIN 2.7 gm/dl (3.1-4.5); CREATININE 1.99 mg/dL (0.55-1.02); POTASSIUM 3.1 mmol/L (3.5-5.1)
[2019-05-09 06:00] LABS: BASO % 0.4 % (0.0-1.0); EOS # 0.2 10*3/uL (0.0-0.4); EOS % 1.8 % (1.0-4.0); HEMATOCRIT 38.2 % (37.0-47.0); HEMOGLOBIN 12.7 g/dl (12.0-16.0); LYMPH # 1.7 10*3/uL (1.3-4.4); LYMPH % 18.7 % (27.0-41.0); MEAN CELL VOLUME 98.2 fl (81.0-99.0); MEAN CORPUSCULAR HGB 32.6 pg (27.0-31.0); MEAN CORPUSCULAR HGB CONC 33.2 g/dl (33.0-37.0); MEAN PLATELET VOLUME 10.8 fl (9.6-12.3); MONO # 0.6 10*3/uL (0.1-1.0); MONO % 6.3 % (3.0-9.0); NEUT # 6.6 10*3/uL (2.3-7.9); NEUT % 72.5 % (47.0-73.0); PLATELET COUNT AUTOMATED 116 10*3/uL (130-400); RED BLOOD COUNT 3.89 10*6/uL (4.10-5.10); RED CELL DISTRI WIDTH 17.2 % (0-14.5); WHITE BLOOD COUNT 9.1 10*3/uL (4.8-10.8)
--- NOTE | 2019-05-09 06:47 | NUR ---
CHEMA ALEXIS Mark [id number] Please refer to the physician's history and physical for past medical history, comorbid conditions, and allergies. Diagnosis: AMBULATORY DYSFUNCTION, AC RENAL FAILURE,COPD Aidan Score: 16,AT RISK WOUND DESCRIPTIONS: Wound Number: 1 Location of the wound: RIGHT PROXIMAL LOWER ARM Type of wound: SKIN TEAR Thickness: Partial Size: 1.7cm X 0.4cm X 0.1cm Tunneling: NONE Undermining: NONE Sinus Tract: NONE Presence of Exudate: Serous Amount: Light Color: Red Odor: None Periwound Skin Appearance: Erythema Wound edges: APPROXIMATED Pain (associated with wound): DENIED AT TIME OF ASSESSMENT How does patient state this happened? PATIENT STATES THAT SHE FELL AGAINST THE WALL AT HOME. Wound Number: 2 Location of the wound: RIGHT DISTAL LOWER ARM Type of wound: SKIN TEAR Thickness: Partial Size: 2cm X 1cm X 0.1cm Tunneling: NONE Undermining: NONE Sinus Tract: NONE Presence of Exudate: Serous Amount: Light Color: Red Odor: None Periwound Skin Appearance: Erythema Wound edges: APPROXIMATED Pain (associated with wound): DENIED AT TIME OF ASSESSMENT How does patient state this happened? PATIENT STATES THAT SHE FELL AGAINST THE WALL AT HOME. Surface the patient is resting on: Isoflex SKIN PREVENTION RECOMMENDATION: 1. Pressure redistribution support surface as appropriate 2. Elevate heels 3. Remove boots/TEDS every shift and reapply 4. Head of bed 30 degrees as tolerated 5. Assess nutrition and hydration 6. Manage moisture 7. Avoid the use of containment devices while in bed 8. Use absorptive products on surfaces limit layers of linens on bed 9. Turn and reposition every 1-2 hours in bed and every 1 hour in chair as tolerated 10. Weight shifts every 15 minutes while up in chair 11. Offloading with pillows or device to keep heels elevated off bed 12. Monitor skin at least every shift 13. Inspect under medical devices twice a day WOUND TREATMENT RECOMMENDATIONS: SKIN TEAR GUIDELINES TO RIGHT PROXIMAL AND DISTAL LOWER ARM: CLEANSE WITH NSS APPLY SUREPREP AROUND THE WOUND ALLOW TO DRY APPLY HYDROGEL AND COVER WITH OPTIFOAM GENTLE. CHANGE EVERY 2 DAYS AND PRN SOILING. PATIENT STATES THAT SHE WILL CARE FOR THESE AREAS AT HOME WHEN DISCHARGED.
--- NOTE | 2019-05-09 08:15 | NUR ---
PHYSICAL THERAPY Screen received pt has PT orders for evaluation will follow, thank you. Lulú James PT
--- NOTE | 2019-05-09 08:24 | NUR ---
Occupational therapy orders received as well as nursing screen. Will follow up with patient for completion of OT evaluation. Thank you. Kailee Carrera, OTR/L
--- NOTE | 2019-05-09 09:00 | NUR ---
Public Health Aide in to talk to patient. Patient states lives at home alone with her daughter and son checking in on her. There are 5 steps in the home. Physician: Maynor Humphreys [facility]acy: [facility] Home health services: none Patient's level of ADLs: MINIMAL ASSIST Patient has working utilities: yes DME: walker, cane, O2 @ 2L nc at HS, O2 supplier unknown Follow-up physician's appointment after d/c: will be made by the hospitalist nurse director upon discharge Does patient want to access PORTAL?: no Discharge plan discussed with patient and her daughter who is at the bedside. She lives at home alone with her family checking in on her. She needs minimal assistance with her ADLs and ambulates with either a cane or a walker. Discussed short term SNF and she is agreeable. When provided with a list of facilities she chose [facility]. When medically stable and accepted she will be discharged to [facility]. She does need a 3 night hospital stay. Discussed HPOA and living will and paperwork given to daughter for completion. Patient would like to name her son first and her daughter second. Awaiting son's arrival. RADHA ALVAREZ
--- NOTE | 2019-05-09 09:25 | NUR ---
Patient not available for Occupational Therapy evaluation as she ins with pallative care. Ree Beaulieu OTR/l
--- NOTE | 2019-05-09 09:30 | NUR ---
DR KILPATRICK IN TO SEE PT. UPDATED HIM ON PT'S RESP. STATUS AND HOME DIURETIC ORDERS. DR KILPATRICK STATED HE WAS GOING TO SPEAK WITH DR MEDINA R/T DIURETICS. NORRIS GALVAN CNP, IN TO SEE PT. SHE SPOKE WITH PT AND PT'S DAUGHTER R/T HOME CARE.
--- NOTE | 2019-05-09 09:42 | NUR ---
PHYSICAL THERAPY Attemptd to see pt in the ICU for evaluation currently with the palliative nurse will follow as appropriate, thank you. Lulú James PT
--- NOTE | 2019-05-09 10:25 | NUR ---
Occupational Therapy evaluation completed in ICCU with full eval to follow. Nursing reports that patient to be transferred to [facility] today. Precautions include fall risk;bed alarm,acute debility, oxygen use,IV UE,h/o multiple falls, high complexity level 29534 via chart review, testing and evaluation. Recommend OT per POC and SNF to enable return home alone. Patient is in agreement with this plan. Thank you. Amanuel Beaulieu OTR/l
--- NOTE | 2019-05-09 11:27 | NUR ---
PT TRANSFERED TO 421 VIA CHAIR. PT REPORT GIVEN TO RECEIVING NURSE.
--- NOTE | 2019-05-09 11:51 | NUR ---
PHYSICAL THERAPY Arleen completed full report to follow, pt moderate level of complexity-[id number] PT to work on strengthening,amb and transfers with recommendation for SNF at discharge, thank you Lulú James PT
--- NOTE | 2019-05-09 13:11 | NUR ---
Patient requesting [facility] referral [facility]. Contacted facility and faxed referral. Requires a 3 night stay, waiting on review/acceptance.
--- NOTE | 2019-05-09 20:31 | NUR ---
DR LEWIS NOTIFIED OF PT'S HR 100-TEENS TO 130'S
[2019-05-10] VITALS: BP 107/67
--- NOTE | 2019-05-10 04:16 | NUR ---
Upon discharge recommend patient to follow up for wound care in outpatient setting continue current wound care orders at discharging facility.
[2019-05-10 07:14] LABS: BASO % 0.3 % (0.0-1.0); EOS % 0.2 % (1.0-4.0); HEMATOCRIT 40.6 % (37.0-47.0); HEMOGLOBIN 13.5 g/dl (12.0-16.0); LYMPH # 1.4 10*3/uL (1.3-4.4); MEAN CELL VOLUME 96.9 fl (81.0-99.0); MEAN CORPUSCULAR HGB 32.2 pg (27.0-31.0); MEAN CORPUSCULAR HGB CONC 33.3 g/dl (33.0-37.0); MEAN PLATELET VOLUME 11.1 fl (9.6-12.3); MONO # 0.5 10*3/uL (0.1-1.0); MONO % 4.5 % (3.0-9.0); NEUT # 9.6 10*3/uL (2.3-7.9); NEUT % 82.4 % (47.0-73.0); NUCLEATED RED BLOOD CELL 0.2 % (0.0-0.0); PLATELET COUNT AUTOMATED 118 10*3/uL (130-400); RED BLOOD COUNT 4.19 10*6/uL (4.10-5.10); RED CELL DISTRI WIDTH 17.7 % (0-14.5); WHITE BLOOD COUNT 11.7 10*3/uL (4.8-10.8)
[2019-05-10 07:29] LABS: ALBUMIN 2.9 gm/dl (3.1-4.5); POTASSIUM 3.8 mmol/L (3.5-5.1)
[2019-05-10 07:35] LABS: CREATININE 1.49 mg/dL (0.55-1.02); PHOSPHOROUS 2.1 mg/dL (2.5-4.9); TOTAL PROTEIN 6.6 gm/dL (6.4-8.2)
--- NOTE | 2019-05-10 09:00 | NUR ---
Patient Case Coordinator in to see patient. No new needs or request at this time. When medically and accepted she will be discharged to [facility]. associate media planner following. Dr. Faith saw patient this morning, diuresing with KANNAN Brown, on rocephin.
--- NOTE | 2019-05-10 09:28 | NUR ---
OT NOTE Pt was seen this A.M. 1:1 for 20 minute OT session. Upon arrival pt was supine in bed. Pt identified by name and and had no complaints at this time. Pt presented to therapy with continuous 4L-O2 via NC which she remained on throughout the entire session. Pt transferred supine to sit EOB with Chino for assist with UB; educated pt on use of bed rails which she then presented with good carry over. While sitting EOB pt verbalized she had a fear of falling, with max verbal prompts for encouragement and relaxation. Challenged pt's static standing tolerance needed for increased I in self care tasks and functional transfers. Pt was able to tolerate aprox 10-30 seconds at a time before sitting due to fatigue. Pt then transferred sit to supine with Chino. There she was left with call light in hand, tray table in place, and bed alarm activated for safety. Continue with rec D/C plan to SNF. OLGA Davenport
--- NOTE | 2019-05-10 10:23 | NUR ---
PHYSICAL THERAPY Patient presented to therapy in supine with head of bed eelvated and report of being in pain and wanting to rest. Patient gives informed consent for treatment. Patient was identified by name and on wristband. Patient is on 4 liters of spO2 VIA NASAL CANULA. Patient performed supine to sitting at EOB transfer with MOD X 1. Patient performed sitting on EOB with SBA. Patient performed sit to stand x 3 with MOD X 1. Patient stood x 3 at bedside with MIN A X 1 for 1st) 10 sec. 2) 20 sec 3rd) 30 sec. Patient transferred back to supine in bed with MOD X 1. Patient was left in supine with head of bed elevated, call light within reach, and bed alarm activated. Patient was 1:1 with this MATERIAL PREPARATION WORKER for 17 minutes total. NARCISA ORR MATERIAL PREPARATION WORKER
[2019-05-10 12:00] VITALS: BP 92/68
--- NOTE | 2019-05-10 13:29 | NUR ---
[facility] stating they are not able to take this patient as the daughter is stating she is unable to care for the patient at home anymore and needs patient to go to correction care. [facility] stating they do not have any beds for a correction patient.
--- NOTE | 2019-05-10 14:08 | NUR ---
In to see patient, son Low at bedside. Discussed discharge planning for terminal press operator and insurance requirements for snf care. Son stated if patient doesn't get better with therapy there is a possibility she may not come home at all, she would have to stay there snf. Under those circumstances, [facility] is unwilling to accept patient. Son said to make the referral to whoever would be willing to accept. Contacted Travis at the [facility] in [place] and faxed referral; explained situation; referral is under review.
--- NOTE | 2019-05-10 14:21 | NUR ---
Contacted [facility], faxed referrals for review. waiting on acceptance.
--- NOTE | 2019-05-10 15:06 | NUR ---
Patient accepted to the [facility], requires 3 night stay. Patient can go tomorrow Thursday05/11/19 if medically stable for discharge.
--- NOTE | 2019-05-10 15:47 | NUR ---
HPOA and living will paperwork completed. Signed by patient and witnessed by SW and CM. Original and copy given to patient and copy placed on chart.
[2019-05-10 16:00] VITALS: BP 80/50; BP 82/50
[2019-05-10 16:30] VITALS: BP 94/56
--- NOTE | 2019-05-10 16:46 | NUR ---
NOTIFIED DR PEREZ,PER DR BURCIAGA, THAT PT BP WAS 80/40, MANUALLY.PT ONLY C/O DIZZINESS WHILE GETTING UP TO BEDSIDE.BILATERAL BP TAKEN AT THIS TIME. LEFT ARM B/P 94/56,MANUALLY.RIGHT ARM BP 82/50,MANUALLY. PER DR PEREZ, PT IS A PT OF DR SANCHEZ'S AND PT HAS EJECTION FRACTION OF 20-25%." UNLESS SHE'S SYMPTOMATIC, THIS IS OK". PT IS TO F/U WITH DR SANCHEZ FOLLOWING D/C TO NH.PER DR PEREZ "DIZZINESS IS EXPECTED" WITH EJECTION FRACTION AND MEDICATIONS.NOTIFIED DR HERRERA.WILL CONTINUE TO MONITOR. PT STABLE AT THIS TIME. BED ALARM INTACT. CALL LIGHT IN REACH.
--- NOTE | 2019-05-10 18:50 | NUR ---
NOTIFIED DR HERRERA OF SON'S REQUEST TO HAVE PT'S DIET CHANGED TO REGULAR D/T PT'S POOR APPETITE.
[2019-05-10 20:00] VITALS: BP 89/62
[2019-05-10 21:57] VITALS: BP 90/56
[2019-05-11] VITALS: BP 99/71
[2019-05-11 06:18] LABS: ALBUMIN 2.8 gm/dl (3.1-4.5); CREATININE 1.25 mg/dL (0.55-1.02); PHOSPHOROUS 1.8 mg/dL (2.5-4.9); TOTAL PROTEIN 6.5 gm/dL (6.4-8.2)
--- NOTE | 2019-05-11 06:45 | NUR ---
PATIENT C/O FEELING CHOCKED UP HEART RATED IN 140-150'S . DR MOFFETT NOTIFIED.
--- NOTE | 2019-05-11 06:55 | NUR ---
RENETTA RASMUSSEN NOTIFIED OF LOW BP AND HEART RATE IN THE 120-130'S. STATED HE WOULD LET DR. KILPATRICK KNOW.
--- NOTE | 2019-05-11 07:29 | NUR ---
Patient has been accepted to the [facility] exemption complete, 3 night stay complete, patient is ok to go when medically stable for discharge.
--- NOTE | 2019-05-11 07:30 | NUR ---
CALL PLACED TO DR. MEDINA UPDATE ON PATIENT CONDITION,
--- NOTE | 2019-05-11 08:00 | NUR ---
Alumni Secretary in to see patient. No new needs or request at this time. When medically stable she will be discharged to [facility]. She has met her 3 night stay. shutdown planner following.
--- NOTE | 2019-05-11 08:40 | NUR ---
PHYSICAL THERAPY Patient seen this am 1:1 for therapy visit and was resting supine in bed upon therapist arrival. Patient identified by name / and presented with increased chest congestion, including several bouts of unproductive coughing. Patient also presents with continuos O2-4L via NC, recording SpO2 95% at rest. Patient transfers supine to sit EOB and sit to stand with MIN A, then completes SPT to [facility], demonstrating very unsteady step sequence. Following toileting patient transfered from BS to bedside chair, STEAM BOX HAND/MIN, with v/c for increased upright posture and improved step sequence. Patient fatigues quickly, recording SpO2 91% following transfer and remained in bedside chair with call light, tray table, telephone and body alarm. Will continue per POC as tolerated, total treatment time 14 minutes. Anderson Padilla, FIELD AUTO APPRAISER
--- NOTE | 2019-05-11 08:46 | NUR ---
OT NOTE Pt was seen this A.M. 1:1 for 16 minute OT session. Upon arrival pt was supine in bed. Pt identified by name and and had no complaints at this time. Pt presented to therapy with continuous 4L-O2 via NC which she remained on throughout the entire session. Pt transferred supine to sit EOB with Chino for assist with UB. Sit to stand completed from bed level with modA followed by standing pivot with modA to the bedside commode due to limited standing endurance of aprox 30 seconds. Clothing management completed with maxA due to severe LOB backwards while standing without UE support and toilet hygiene completed with supervision while seated. Sit to stand then completed from bedside commode with modA followed by standing pivot to the recliner with modA. THere she was left with call light in hand, tray table in place, and body alarm activated for safety. Continue with rec D/C plan to SNF. JOSH Davenport/Gerry
[2019-05-11 12:00] VITALS: BP 109/65
--- NOTE | 2019-05-11 12:20 | NUR ---
Discussed discharge planning with Dr. Schaefer who states Dr. Cota is going to put the patient on a dobutamine drip for a couple of days. Informed her discharge plan is [facility] and she is Medicare and can go when medically stable. metal storage worker notified.
--- NOTE | 2019-05-11 15:00 | NUR ---
PHYSICAL THERAPY CO-SIGN I approve of the Physical Therapy notes written above. Lulú James PT
--- NOTE | 2019-05-11 15:27 | NUR ---
OCCUPATIONAL THERAPY CO-SIGN I approve of the Occupational Therapy notes written above. Kailee Carrera, OTR/L
[2019-05-11 16:00] VITALS: BP 96/70
[2019-05-11 20:00] VITALS: BP 115/74
[2019-05-12] VITALS (7 sets, daily range): BP systolic 101–127; BP diastolic 56–75
[2019-05-12 05:27] LABS: BUN 17 mg/dl (7-24); CHLORIDE 114 mmol/L (98-107); CREATININE 0.99 mg/dL (0.55-1.02); PHOSPHOROUS 2.8 mg/dL (2.5-4.9); POTASSIUM 3.6 mmol/L (3.5-5.1); SODIUM 143 mmol/L (136-145)
--- NOTE | 2019-05-12 16:55 | NUR ---
Contacted Dr. Schaefer regarding skin tear on left arm. See new orders.
[2019-05-13] VITALS: BP 109/69
--- NOTE | 2019-05-13 00:08 | NUR ---
24 HR chart check completed.
--- NOTE | 2019-05-13 02:32 | NUR ---
Patient resting quietly with no c/o discomfort. Respirations easy and regular. Vital signs stable. No overt distress. OXYGEN 4L VIA NC INTACT. CALL LIGHT WITHIN REACH HISSOM,TRISTON
--- NOTE | 2019-05-13 04:23 | NUR ---
Patient sleeping. Respirations relaxed and easy. Siderails up . [place] on. NO S/S OF DISTRESS NOTED. OXYGEN 4L VIA NASAL CANNULA INTACT. CALL LIGHT WITHIN REACH. HISSOM,TRISTON
--- NOTE | 2019-05-13 06:00 | NUR ---
PTS WEIGHT THIS MORNING WAS 138LBS. NEW WEIGHT PROGRAMMED INTO DOBUTAMINE DRIP PUMP. NOW RUNNING AT 5MCG/KG/MIN OR 18.8ML/HOUR.
[2019-05-13 08:00] VITALS: BP 120/80
--- NOTE | 2019-05-13 08:40 | NUR ---
PHYSICAL THERAPY Patient seen this am 1:1 for therapy visit and was sitting up in bedside chair upon therapist arrival. Patient identified by name / and was very pleasant this morning, voicing no c/o's pain. Patient stated she had just ordered breakfast and agreed to therapy session and presented with continuous O2-4L via NC, including IV treatment. Patient transfers sit to stand MIN A x 1, tolerating static stand approx 3 minutes, use of walker standing support, without LOB. Patient ambulated 10'x 1, walker, CGA, demonstrating very cautious step sequence and reported fear of falling. Patient needed several v/c's for encouragment and walker safety as patient returned to bedside chair. Patient remained in chair with call light, tray table, telephone and body alarm for safety as breakfast tray arrived. Will continue per POC as tolerated, total treatment time 16 minutes. Anderson Padilla, LINING SEWER
--- NOTE | 2019-05-13 09:03 | NUR ---
OT NOTE Pt was seen this A.M. 1:1 for 23 minute OT session. Upon arrival pt was sitting upright in the recliner. Pt identified by name and and had no complaints at this time. Pt presented to therapy with continuous 4L-O2 via NC which she remained on throughout the entire session. Pt completed multiple sit to stand transfers from chair level with Chino and use of w/w for UE support. Upon inital rise pt presented with retrograde LOB that required Chino to correct. Challenged pt's static standing tolerance needed for increased I in self care tasks and functional transfers, pt was able to tolerate aprox 3 minutes at a time before sitting due to fatigue. Throughout pt was educated on energy conservation techniques and work simplification techniques for increased I in ADL/IADL tasks. Pt then completed functional mobility around the bed with CGA and use of w/w. Throughout pt required multiple verbal prompts for relaxation due to increased fear of falling. Pt was left sitting upright in the recliner with call light in hand, tray table in place, and body alarm activated for safety. Continue with rec D/C plan to SNF. JOSH Davenport/Gerry
[2019-05-13 12:00] VITALS: BP 100/50
--- NOTE | 2019-05-13 12:30 | NUR ---
Dobutamine drip stopped.
--- NOTE | 2019-05-13 12:53 | NUR ---
Spoke with Dr. Siegel regarding patients left buttock. See new orders.
--- NOTE | 2019-05-13 15:15 | NUR ---
PHYSICAL THERAPY CO-SIGN I approve of the Physical Therapy notes written above. Lulú James PT
[2019-05-13 16:00] VITALS: BP 90/58
[2019-05-13 20:00] VITALS: BP 142/64
--- NOTE | 2019-05-13 20:59 | NUR ---
INFORMED THAT PATIENT C/O LIQUID BM FOR X2DAYS HER FOURTH TODAY, IT IS LIQUID WITH MUCOUS. STATED TOP PLACE ORDERS.
--- NOTE | 2019-05-13 21:10 | NUR ---
STOOL SPECIMEN SENT TO MAIN LAB
[2019-05-14] VITALS (7 sets, daily range): BP systolic 88–112; BP diastolic 55–80
--- NOTE | 2019-05-14 01:00 | NUR ---
CALLED DR LEWIS TO INFROM HIM OF THE PATIENTS LOW BP.
--- NOTE | 2019-05-14 02:33 | NUR ---
CALLED DR LEWIS TO INFORM HIM OF THE NEW BP. HE STATES TO CHECK AGAIN IN ONE HOUR THEN CALL HIM WITH RESULTS
--- NOTE | 2019-05-14 02:40 | NUR ---
24 HR chart check completed.
--- NOTE | 2019-05-14 04:21 | NUR ---
Patient sleeping. Respirations relaxed and easy. Siderails up . [place] on. FLETCHER WADE
[2019-05-14 06:47] LABS: BASO % 0.5 % (0.0-1.0); EOS # 0.2 10*3/uL (0.0-0.4); EOS % 2.7 % (1.0-4.0); HEMATOCRIT 38.8 % (37.0-47.0); HEMOGLOBIN 12.6 g/dl (12.0-16.0); LYMPH # 1.4 10*3/uL (1.3-4.4); LYMPH % 16.6 % (27.0-41.0); MEAN CELL VOLUME 100.3 fl (81.0-99.0); MEAN CORPUSCULAR HGB 32.6 pg (27.0-31.0); MEAN CORPUSCULAR HGB CONC 32.5 g/dl (33.0-37.0); MEAN PLATELET VOLUME 10.9 fl (9.6-12.3); MONO # 0.5 10*3/uL (0.1-1.0); MONO % 6.3 % (3.0-9.0); NEUT # 6.1 10*3/uL (2.3-7.9); NEUT % 73.4 % (47.0-73.0); PLATELET COUNT AUTOMATED 120 10*3/uL (130-400); RED BLOOD COUNT 3.87 10*6/uL (4.10-5.10); RED CELL DISTRI WIDTH 17.8 % (0-14.5); WHITE BLOOD COUNT 8.4 10*3/uL (4.8-10.8)
[2019-05-14 06:58] LABS: ALBUMIN 2.4 gm/dl (3.1-4.5); ALKALINE PHOSPHATASE 89 U/L (45-117); BUN 15 mg/dl (7-24); CHLORIDE 115 mmol/L (98-107); CREATININE 0.93 mg/dL (0.55-1.02); PHOSPHOROUS 1.8 mg/dL (2.5-4.9); POTASSIUM 4.6 mmol/L (3.5-5.1); SGOT/AST 53 IU/L (3-35); SGPT/ALT 36 U/L (12-78); SODIUM 143 mmol/L (136-145); TOTAL PROTEIN 6.2 gm/dL (6.4-8.2)
--- NOTE | 2019-05-14 09:50 | NUR ---
Antonio cath removed. 100ml huma urine out. 10ml fluid removed from balloon. Patient tolerated well. Educated to notify staff of first void.
--- NOTE | 2019-05-14 10:25 | NUR ---
09:00 O2 DECREASED TO 2 L NC. SPO2 98 ON 4 L NC. RN AWARE
[2019-05-14] MEDS ORDERED: ALDACTONE25 MG PO (11:59)
[2019-05-14] MEDS ORDERED: BENZONATATE100 M1 PO (11:59)
[2019-05-14] MEDS ORDERED: NEURONTIN300 MG PO (11:59)
[2019-05-14] MEDS ORDERED: LISINOPRIL5 MG PO (11:59)
[2019-05-14] MEDS ORDERED: HYDROCODONE-AC1 EAC1 PO (11:59)
[2019-05-14] MEDS ORDERED: KLOR-CON M2020 ME1 PO ×2 (11:59→12:03)
--- NOTE | 2019-05-14 12:38 | NUR ---
PHYSICAL THERAPY Patient seated on bedside commode upon arrival with PATIENT INTAKE COORDINATOR present in room. Patient required extensive time on bedside this date. Patient performed STS transfer bedside commode->FWW requiring minAx1, followed by standing tolerance x 2 trials, up to 1.5 minutes with completion of dressing/hygiene tasks. No LOB noted. Patient performed SPT transfer ->chair requiring CGA. Patient reports increased fatigue and did not want to ambulate, but was agreeable to perform seated ther-ex. Patient performed B LE ther-ex, AROM-- for strength, endurance and ROM: marches, LAQ, hip ABD/ADD( OKC), ankle PF/DF 2x10 reps. Intermittent rest breaks provided, due to fatigue. Cues and supervision for technique and progression of exercises. Patient seated in bed side chair at session end with tray table and call light within reach. Patient reports no c/o's this date. Sanaz Tolbert, TRANSFORMER INSPECTOR
--- NOTE | 2019-05-14 16:00 | NUR ---
Discharge instructions reviewed with patient/family. Patient receptive and verbalizes understanding. Follow-up care arranged. Written instructions given to patient/family. KAREL TURNER
--- NOTE | 2019-05-17 07:15 | NUR ---
OCCUPATIONAL THERAPY CO-SIGN I approve of the Occupational Therapy notes written above. RAN TODD OTR/Gerry
== END 2019-05-14 16:00 | disposition other institution (70) | DRG 682 ==
LOC: ED 22:59 → 4E 05-08 00:19 → EDHOLD 05-08 00:19 → 5E 05-08 01:18 → ICCU 05-08 02:11 → 4E 05-09 11:15
PROVIDERS: Emergency Medicine Emergency Medical Services; Family Medicine; Internal Medicine; Internal Medicine Nephrology; ADMIT Internal Medicine
DX: N17.0 Acute kidney failure with tubular necrosis (principal); I50.23 Acute on chronic systolic (congestive) heart failure; N39.0 Urinary tract infection, site not specified; E44.0 Moderate protein-calorie malnutrition; E87.2 Acidosis; R26.2 Difficulty in walking, not elsewhere classified; D69.6 Thrombocytopenia, unspecified; E83.41 Hypermagnesemia; I25.10 Atherosclerotic heart disease of native coronary artery without angina pectoris; F17.210 Nicotine dependence, cigarettes, uncomplicated; J44.9 Chronic obstructive pulmonary disease, unspecified; E03.9 Hypothyroidism, unspecified; E78.5 Hyperlipidemia, unspecified; E11.22 Type 2 diabetes mellitus with diabetic chronic kidney disease; D75.89 Other specified diseases of blood and blood-forming organs; I95.9 Hypotension, unspecified; I25.5 Ischemic cardiomyopathy; I27.20 Pulmonary hypertension, unspecified; I34.0 Nonrheumatic mitral (valve) insufficiency; B96.20 Unspecified Escherichia coli [E. coli] as the cause of diseases classified elsewhere; E87.6 Hypokalemia; E87.8 Other disorders of electrolyte and fluid balance, not elsewhere classified; R19.7 Diarrhea, unspecified; N18.4 Chronic kidney disease, stage 4 (severe); E83.39 Other disorders of phosphorus metabolism; M54.9 Dorsalgia, unspecified; E11.40 Type 2 diabetes mellitus with diabetic neuropathy, unspecified; Z99.81 Dependence on supplemental oxygen; Z86.73 Personal history of transient ischemic attack (TIA), and cerebral infarction without residual deficits; I25.2 Old myocardial infarction; Z95.5 Presence of coronary angioplasty implant and graft; Z98.42 Cataract extraction status, left eye; Z98.41 Cataract extraction status, right eye; Z80.3 Family history of malignant neoplasm of breast; Z83.3 Family history of diabetes mellitus; Z82.49 Family history of ischemic heart disease and other diseases of the circulatory system; Z84.89 Family history of other specified conditions; Z79.02 Long term (current) use of antithrombotics/antiplatelets; Z79.82 Long term (current) use of aspirin; Z79.899 Other long term (current) drug therapy; Z91.19 Patient's noncompliance with other medical treatment and regimen; Z87.442 Personal history of urinary calculi; Z68.25 Body mass index [BMI] 25.0-25.9, adult

== ENCOUNTER 2019-07-01 09:18 | Inpatient (IN) | payer MEDICARE ==
[~2019-07-01] VITALS: Ht 167.6 cm; Wt 53.7 kg
[~2019-07-01 09:18] MED LIST changes: +ALDACTAZIDE 251 EACH PO; +AMIODARONE HYD200 MG PO; +ASPIRIN CHEWABL81 MG PO; +ATARAX,VISTARIL10 MG PO; +BENZONATATE100 M1 PO; +FUROSEMIDE40 MG PO; +HYDROCODONE-AC1 EAC1 PO; +Imdur SA60 MG PO; +KLOR-CON M2020 ME1 PO; +LISINOPRIL5 MG PO; +LOPERAMIDE HCL2 MG PO; +PAXIL20 M1 PO; +PLAVIX75 M1 PO; +POTASSIUM CHLO20 ME4 PO; +VENT7GM INH
[2019-07-01 09:22] VITALS: BP 132/88
--- NOTE | 2019-07-01 09:49 | NUR ---
PT REQUESTS CRANDALL CATHETER FOR URINE SPECIMEN SHE IS OFTEN INCONTINENT AND CANNOT RELIABLY PROVIDE A SPECIMEN ON DEMAND OPER HER STMT.
[2019-07-01 09:53] LABS: BILIRUBIN NEGATIVE (NEGATIVE); BLOOD 1+ (NEGATIVE); CLARITY CLOUDY (CLEAR); COLOR YELLOW (YELLOW); GLUCOSE NEGATIVE (NEGATIVE); KETONE NEGATIVE (NEGATIVE); LEUKO ESTERASE 2+ (NEGATIVE); NITRITE NEGATIVE (NEGATIVE); PH 5.5 (5.0-9.0); UROBILINOGEN 0.2 E.U./dl (0.2-1.0)
[2019-07-01 09:53] LABS: BASO % 0.5 % (0.0-1.0); EOS % 0.3 % (1.0-4.0); HEMATOCRIT 40.2 % (37.0-47.0); HEMOGLOBIN 13.2 g/dl (12.0-16.0); LYMPH # 1.1 10*3/uL (1.3-4.4); LYMPH % 14.6 % (27.0-41.0); MEAN CELL VOLUME 102.6 fl (81.0-99.0); MEAN CORPUSCULAR HGB 33.7 pg (27.0-31.0); MEAN CORPUSCULAR HGB CONC 32.8 g/dl (33.0-37.0); MEAN PLATELET VOLUME 9.3 fl (9.6-12.3); MONO # 0.5 10*3/uL (0.1-1.0); MONO % 6.4 % (3.0-9.0); NEUT # 6.1 10*3/uL (2.3-7.9); NEUT % 77.7 % (47.0-73.0); PLATELET COUNT AUTOMATED 166 10*3/uL (130-400); RED BLOOD COUNT 3.92 10*6/uL (4.10-5.10); RED CELL DISTRI WIDTH 16.1 % (0-14.5); WHITE BLOOD COUNT 7.8 10*3/uL (4.8-10.8)
[2019-07-01 10:01] LABS: BACTERIA 3+; WBC TNTC wbc/hpf (0-5)
[2019-07-01 10:05] LABS: ACT PARTIAL THROMBO TIME 28.5 SECONDS (20.0-32.1)
[2019-07-01 10:08] LABS: ALBUMIN 2.7 gm/dl (3.1-4.5); ALKALINE PHOSPHATASE 71 U/L (45-117); BUN 27 mg/dl (7-24); CHLORIDE 104 mmol/L (98-107); LIPASE 42 U/L (73-393); POTASSIUM 2.8 mmol/L (3.5-5.1); SGOT/AST 20 IU/L (3-35); SGPT/ALT 17 U/L (12-78); SODIUM 138 mmol/L (136-145); TOTAL PROTEIN 6.5 gm/dL (6.4-8.2)
[2019-07-01 10:09] LABS: TROPONIN I < 0.015 ng/ml (<0.045)
[2019-07-01 11:17] VITALS: BP 126/90
--- NOTE | 2019-07-01 12:15 | NUR ---
A 74, admitted to , under the services of DON Berry DO with a diagnosis of uti, fall, hypokalemia. Chief complaint is fall at home son called ems for pt. Patient arrived via stretcher from ER. Monitor applied. Initial assessment completed. Vital signs taken and recorded. See assessment for past medical history, medications and allergies. Patient and/or family oriented to unit. [facility] visitation policy reviewed. CHEN REED
[2019-07-01] MEDS ORDERED: LISINOPRIL2.5 MG PO (12:27)
[2019-07-01] MEDS ORDERED: GOOD NEIGHBOR650 MG PO (12:32)
[2019-07-01] MEDS ORDERED: METOLAZONE5 MG PO (12:33)
[2019-07-01] MEDS ORDERED: SYNTHROID25 MCG PO (12:38)
[2019-07-01] MEDS ORDERED: NEURONTIN300 MG PO (12:38)
[2019-07-01] MEDS ORDERED: POTASSIUM CHLO20 ME3 PO (12:39)
--- NOTE | 2019-07-01 12:40 | NUR ---
Med rec updated form med list provided to us by pt. Printed list is labeled with [facility] [employer]. Dated 06/18/19
--- NOTE | 2019-07-01 12:42 | NUR ---
Dr. Hester notified that pt here and med rec updated.
[2019-07-01 13:01] VITALS: BP 104/60
--- NOTE | 2019-07-01 14:18 | NUR ---
Contacted [facility]. We sent this patient to their facility for skilled therapy on 05/14. She was discharged to home with encouragement of her daughter in law on 06/17/2019. [facility] started the long-term Medicaid application prior to patient discharging and it is still pending. Patient is welcome to go back to [facility] when they have a bed available, possibly Thursday07/04/19.
--- NOTE | 2019-07-01 15:27 | NUR ---
Notified Dr. Hester of coccyx wound. States Dr. Forrester is going to put in orders.
[2019-07-01 16:00] VITALS: BP 90/52
--- NOTE | 2019-07-01 17:20 | NUR ---
Heels protectors applied.
--- NOTE | 2019-07-01 19:46 | NUR ---
24 HR chart check completed.
--- NOTE | 2019-07-01 19:46 | NUR ---
TOOK OVER CARE OF PT. PT RESTING IN BED SLEEPING, NOT AWAKENED AT THIS TIME. RESPIRATIONS EASY, UNLABORED, 16/MIN. SUPPLEMENTAL OXYGEN IN TACT. NO S/S OF DISTRESS. WHITE BOARD UPDATED. SAFETY MEASURES IN PLACE. WILL CONTINUE TO MONITOR. CALL LIGHT IN REACH.
[2019-07-01 20:00] VITALS: BP 105/62
[2019-07-01 20:05] VITALS: BP 100/58
[2019-07-02] VITALS: BP 111/68
--- NOTE | 2019-07-02 01:11 | NUR ---
DR TORRES NOTIFIED OF PT FREQUENT PVCS ON PATIENT SUPPORT ASSISTANT STRIPS. PT LYING IN BED, SLEEPING. NO S/S OF DISTRESS. RESPIRATIONS UNLABORED ON SUPPLEMENTAL OXYGEN. PHYSICIAN STATES TO NOTIFY HIM IF PT CONTINUES TO THROW PVCS, HE MAY CONSULT A COMMERCIAL LITIGATION PARALEGAL. WILL CONTINUE TO MONITOR PT. WILL NOTIFY PATIENT SUPPORT ASSISTANT TECH.
--- NOTE | 2019-07-02 01:40 | NUR ---
MECHANICAL ENERGY ENGINEER TECH NOTIFIES THIS NURSE THAT PT IS HAVING MULTIPLE PVCS IN A ROW AT THIS TIME. DR. TORRES NOTIFIED OF THIS, PHYSICIAN STATES THAT HE IS GOING TO CONSULT CARDIOLOGY. PT IS RESTING IN BED, SLEEPING. NO S/S OF DISTRESS IS NOTED AT THIS TIME.
[2019-07-02 02:03] VITALS: BP 100/50
--- NOTE | 2019-07-02 02:26 | NUR ---
CONSULT CALLED TO DR TOUSSAINT PER ORDERS. ORDERS GIVEN FOR MAGNESIUM SULFATE 1 GRAM X 1 NOW. WILL ADMINISTER MEDICATIONS PER ORDERS.
[2019-07-02 06:34] LABS: BASO % 0.4 % (0.0-1.0); EOS # 0.1 10*3/uL (0.0-0.4); EOS % 0.8 % (1.0-4.0); HEMATOCRIT 39.8 % (37.0-47.0); HEMOGLOBIN 13.1 g/dl (12.0-16.0); LYMPH # 2.2 10*3/uL (1.3-4.4); LYMPH % 29.5 % (27.0-41.0); MEAN CELL VOLUME 102.6 fl (81.0-99.0); MEAN CORPUSCULAR HGB 33.8 pg (27.0-31.0); MEAN CORPUSCULAR HGB CONC 32.9 g/dl (33.0-37.0); MEAN PLATELET VOLUME 10.5 fl (9.6-12.3); MONO # 0.5 10*3/uL (0.1-1.0); MONO % 7.3 % (3.0-9.0); NEUT # 4.5 10*3/uL (2.3-7.9); NEUT % 61.6 % (47.0-73.0); PLATELET COUNT AUTOMATED 175 10*3/uL (130-400); RED BLOOD COUNT 3.88 10*6/uL (4.10-5.10); RED CELL DISTRI WIDTH 16.1 % (0-14.5); WHITE BLOOD COUNT 7.3 10*3/uL (4.8-10.8)
[2019-07-02 06:39] LABS: CREATININE 1.51 mg/dL (0.55-1.02); POTASSIUM 2.8 mmol/L (3.5-5.1)
[2019-07-02 08:00] VITALS: BP 108/58
--- NOTE | 2019-07-02 08:21 | NUR ---
ON ASSESSMENT PATIENT IS DROWSY, BUT AROUSES EASILY TO HER NAME. SHE'S ORIENTED TO HERSELF AND PLACE. ABLE TO MAKE HER NEEDS KNOWN. DENIES PAIN OR SHORTNESS OF BREATH. BILATERAL HEEL RAISERS IN PLACE. SEE ALL APPROPRIATE INTERVENTIONS.
--- NOTE | 2019-07-02 08:39 | NUR ---
Shift chart check completed.24 HR chart check completed.
--- NOTE | 2019-07-02 11:05 | NUR ---
PT INCONTINENT MODERATE AMOUNT WATERY BAEZA STOOL IN ADDITION TO BEDPAN. MEDICATED WITH ZOFRAN FOR NAUSEA, BUT NO EMESIS.
--- NOTE | 2019-07-02 11:14 | NUR ---
Difficult for pt to remain awake this AM when this DISTRICT RANGER-S met with her. Confusion was also noted in pt. Phoned pt's son/DPOAHC Low Bishop who stated that pt has been struggling at home. She resides alone and has HH/PT/OT 3xwk plus home O2. Low is hoping that pt will qualify for SNF and then transition to LTC. Preferred NF is [facility]. There is not a second choice at this time.
--- NOTE | 2019-07-02 11:48 | NUR ---
EARLIER ZOFRAN EFFECTIVE TO ALLOW PT TO TAKE HER ORAL AM MEDS.
[2019-07-02 12:00] VITALS: BP 92/55
[2019-07-02 16:00] VITALS: BP 92/72
--- NOTE | 2019-07-02 19:45 | NUR ---
TOOK OVER CARE OF PT. PT SITTING UP IN BED, EATING AND WATCHING TELEVISION. RESPIRATIONS 16 ON 3L NC, UNLABORED. NO COMPLAINTS OF PAIN OR SHORTNESS OF BREATH ARE VOICED BY PT. ALL NEEDS ARE CURRENTLY MET, SAFETY MEASURES IN PLACE. CALL LIGHT IN REACH.
[2019-07-02 20:00] VITALS: BP 133/89
--- NOTE | 2019-07-02 20:11 | NUR ---
NOTIFIED RESPIRATORY THAT PT IS REQUESTING PRN BREATHING TREATMENT AT THIS TIME.
--- NOTE | 2019-07-02 23:57 | NUR ---
PT GIVEN NORCO AT THIS TIME FOR C/O GENERALIZED PAIN TO COCCYX AND BILATERAL LEGS. WILL MONITOR FOR EFFECTIVENESS. HOB ELEVATED, SUPPLEMENTAL OXYGEN IN PLACE. ALL NEEDS CURRENTLY MET, SAFETY MEASURES IN PLACE. CALL LIGHT IN REACH.
[2019-07-03] VITALS: BP 122/85
--- NOTE | 2019-07-03 00:25 | NUR ---
Patient resting quietly with no c/o discomfort. Respirations easy and regular. Vital signs stable. No overt distress. ABBIE WALSH
[2019-07-03 06:02] LABS: CREATININE 1.45 mg/dL (0.55-1.02); POTASSIUM 3.6 mmol/L (3.5-5.1)
[2019-07-03 06:06] LABS: BASO # 0.1 10*3/uL (0.0-0.1); BASO % 0.6 % (0.0-1.0); EOS # 0.1 10*3/uL (0.0-0.4); EOS % 0.6 % (1.0-4.0); HEMATOCRIT 40.1 % (37.0-47.0); HEMOGLOBIN 12.8 g/dl (12.0-16.0); LYMPH # 2.6 10*3/uL (1.3-4.4); LYMPH % 30.1 % (27.0-41.0); MEAN CORPUSCULAR HGB 33.8 pg (27.0-31.0); MEAN CORPUSCULAR HGB CONC 31.9 g/dl (33.0-37.0); MEAN PLATELET VOLUME 10.1 fl (9.6-12.3); MONO # 0.7 10*3/uL (0.1-1.0); MONO % 7.7 % (3.0-9.0); NEUT # 5.2 10*3/uL (2.3-7.9); NEUT % 60.8 % (47.0-73.0); PLATELET COUNT AUTOMATED 164 10*3/uL (130-400); RED BLOOD COUNT 3.79 10*6/uL (4.10-5.10); RED CELL DISTRI WIDTH 16.1 % (0-14.5); WHITE BLOOD COUNT 8.5 10*3/uL (4.8-10.8)
[2019-07-03 06:24] LABS: MEAN CELL VOLUME 105.8 fl (81.0-99.0)
[2019-07-03 08:00] VITALS: BP 130/70
--- NOTE | 2019-07-03 08:17 | NUR ---
PT RESTING IN BED. NO DISTRESS NOTED. WILL MONITOR
[2019-07-03 12:00] VITALS: BP 98/54
[2019-07-03 16:00] VITALS: BP 98/83
[2019-07-03 20:00] VITALS: BP 93/53
--- NOTE | 2019-07-03 22:07 | NUR ---
CHANGED COCCYX WOUND DRESSING AFTER PATIENT HAD BOWEL MOVEMENT. TOLERATED WELL. PATIENT NOW PROPPED UP ON LEFT SIDE WITH WEDGE UNDER. NO COMPLAINTS AT THIS TIME. CALL LIGHT WITHIN REACH. BED ALARM ON. WILL CONTINUE TO MONITOR.
[2019-07-04] VITALS: BP 97/59
[2019-07-04 07:04] LABS: BASO % 0.6 % (0.0-1.0); EOS # 0.1 10*3/uL (0.0-0.4); EOS % 1.4 % (1.0-4.0); HEMATOCRIT 40.6 % (37.0-47.0); HEMOGLOBIN 13.2 g/dl (12.0-16.0); LYMPH % 29.5 % (27.0-41.0); MEAN CORPUSCULAR HGB 33.5 pg (27.0-31.0); MEAN CORPUSCULAR HGB CONC 32.5 g/dl (33.0-37.0); MEAN PLATELET VOLUME 10.2 fl (9.6-12.3); MONO # 0.5 10*3/uL (0.1-1.0); MONO % 6.5 % (3.0-9.0); NEUT # 4.3 10*3/uL (2.3-7.9); NEUT % 61.7 % (47.0-73.0); PLATELET COUNT AUTOMATED 176 10*3/uL (130-400); RED BLOOD COUNT 3.94 10*6/uL (4.10-5.10); RED CELL DISTRI WIDTH 15.5 % (0-14.5); WHITE BLOOD COUNT 6.9 10*3/uL (4.8-10.8)
[2019-07-04 07:32] LABS: CREATININE 1.21 mg/dL (0.55-1.02); POTASSIUM 3.2 mmol/L (3.5-5.1)
--- NOTE | 2019-07-04 09:40 | NUR ---
Occupational therapy orders received and OT evaluation completed in full on floor four. Patient precautions include fall risk, ww use, L LE pain, chair alarm, weakness, and poor historian. Per OT eval, OT recommends a SNF. If refused home with HH SN, PT, and OT with 24/ supervision[place], [address]. Thank you for the referral. Kailee Carrera, OTR/L
--- NOTE | 2019-07-04 09:46 | NUR ---
CHEMA ALEXIS Mark [id number] Please refer to the physician's history and physical for past medical history, comorbid conditions, and allergies. Diagnosis: UTI AC RENAL FAILURE CHF DYSPNEA FALLS HYPOKALEMIA Aidan Score: 15,AT RISK WOUND DESCRIPTIONS: Wound Number: 1 Location of the wound: coccyx Type of wound: stage 2 Thickness: Partial Size: 1.5cm x 0.4cm x 0.1cm Tunneling: none Undermining: none Sinus Tract: none Presence of Exudate: Serous Amount: Light Color: Red Odor: None Periwound Skin Appearance: Erythema Wound edges: approximated Pain (associated with wound): denied at time of assessment How does patient state this happened? patient unsure how this happened. Ecchymotic areas noted on back from shoulders to above buttocks. Surface the patient is resting on: Isoflex SKIN PREVENTION RECOMMENDATION: 1. Pressure redistribution support surface as appropriate 2. Elevate heels 3. Remove boots/TEDS every shift and reapply 4. Head of bed 30 degrees as tolerated 5. Assess nutrition and hydration 6. Manage moisture 7. Avoid the use of containment devices while in bed 8. Use absorptive products on surfaces limit layers of linens on bed 9. Turn and reposition every 1-2 hours in bed and every 1 hour in chair as tolerated 10. Weight shifts every 15 minutes while up in chair 11. Offloading with pillows or device to keep heels elevated off bed 12. Monitor skin at least every shift 13. Inspect under medical devices twice a day WOUND TREATMENT RECOMMENDATIONS: Stage 2 guidelines to coccyx: clease with nss apply sureprep around the wound apply hydrogel to wound bed. Change every 2 days and prn soiling. Wheel chair cushion when out of bed.
--- NOTE | 2019-07-04 10:10 | NUR ---
Leticia FLORES notified of wound care recommendations.
--- NOTE | 2019-07-04 10:49 | NUR ---
In to see patient, son a bedside. Discussed the fact that the son wanted patient to go to [facility]. I explained in detail that patient has used all of her full pay snf days and is into her copay days. He stated they are unable to pay the copay days at this time. [facility] does not accept pending medicaid, but [facility] has contacted the hospital and willing to take patient back. Son stated he agreed and patient can return to [place].
--- NOTE | 2019-07-04 11:07 | NUR ---
Contacted Vijaya at [facility] and stated family and patient are agreeable to return to [facility]. Will fax entire referral once PT eval is completed.
--- NOTE | 2019-07-04 11:13 | NUR ---
PHYSICAL THERAPY Arleen completed full report to follow moderate level of complexity [address]253 recomend SNF at discharge. PT to work on transfers, amb , balance/safety and strengthening. Lulú James PT
[2019-07-04 12:00] VITALS: BP 101/67
--- NOTE | 2019-07-04 12:32 | NUR ---
Patient referral faxed to the [facility] for review.
--- NOTE | 2019-07-04 12:40 | NUR ---
PHYSICAL THERAPY Patient seen this pm 1:1 for therapy visit and was sitting up in bedside chair upon therapist arrival. Patient identified by name / and voices no new c/o's at this time. OT customer support assistant was present for observation only as patient performed sit to stand transfer with MIN A. Patient ambulated 20'x 2 to bathroom and back, use of wh walker, MIN A, while demonstrating very unsteady gait pattern, LOB x 2 while turning around and POOR wh walker safety / navigaiton. Patient needed several v/c's to focus on task secndary to increased confusion and returned to bedside chair with mild fatigue. Patient remained in bedside chair with call light, tray table, telephone and body alarm for safety. Will continue per POC as tolerated, total treatment time 16 minutes. Anderson Padilla, BUSINESS MANAGEMENT SPECIALIST
--- NOTE | 2019-07-04 12:44 | NUR ---
Podiatry resident notified of consult. No new orders. Physician to follow up at [facility].
--- NOTE | 2019-07-04 12:59 | NUR ---
OT NOTE Pt was seen this P.M. 1:1 for 19 minute OT session. Upon arrival pt was sitting upright in the recliner. Pt identified by name and and presented with increased confusion. While sitting in the recliner pt doffed and donned socks with SBA. Sit to stand completed from chair level with Chino X 2 and use of w/w for UE support. Upon inital rise pt had LOB backwards that required Chino to correct. Functional mobility was then completed to the bathroom with Chino and use of w/w with multiple bouts of unsteady gait and LOB backwards that required Chino to correct. Pt transferred on to standard commode with Chino due to poor safety awareness and off with modA due to low surface. Upon inital rise pt continued to present with retrograde posture that required modA to correct. Clothing management completed with modA and toilet hygiene completed with Chino. Functional mobility was then completed back to the recliner with Chino and use of w/w. There she was left sitting upright with call light in hand, tray table in place, and body alarm activated for safety. Continue with rec D/c plan to SNF. JOSH Davenport/Gerry
--- NOTE | 2019-07-04 15:00 | NUR ---
Antonio cath removed. Patient tolerated well.
[2019-07-04 16:00] VITALS: BP 119/59
--- NOTE | 2019-07-04 17:00 | NUR ---
Patient ambulated to toilet. Voiding w/o and c/o pain,burning.
--- NOTE | 2019-07-04 18:16 | NUR ---
Was contacted by nursing produce department supervisor regarding US results.
--- NOTE | 2019-07-04 18:18 | NUR ---
Contacted regarding US results. See new orders.
[2019-07-04 20:00] VITALS: BP 92/51
--- NOTE | 2019-07-04 20:35 | NUR ---
DOCTOR SHARON WAS MADE AWARE OF PATIENTS BP AND THAT [facility] WAS ON HOLD CURRENTLY. PATIENT IS ASYMPTOMATIC CURRENTLY. FAMILY IS AT BEDSIDE. AND FAMILY NOR PATIENT ARE STATING ANY CONCERNS OR QUESTIONS AT THIS TIME.
[2019-07-05] VITALS: BP 90/60
--- NOTE | 2019-07-05 04:34 | NUR ---
Upon discharge recommend patient to follow up for wound care in outpatient setting continue current wound care orders at discharging facility
--- NOTE | 2019-07-05 06:59 | NUR ---
Patient accepted to [facility], 3 night stay complete, hospital exemption complete, patient is ok to go when medically stable for discharge.
--- NOTE | 2019-07-05 08:20 | NUR ---
PHYSICAL THERAPY Patient seen this am 1:1 for therapy visit and was just awakening upon therapist arrival. Patient identified by name / and reports L foot / toe pain, but was unable to rate on 0-10 scale. Patient transfers supine to sit EOB with MIN A, taking a minute or so to fully awaken, then completed sit to stand transfer MIN A x 1. Patient demonstrated initial retrograde posture and needed both verbal / tactile cue maintain upright position. Patient ambulated 20'x 2 to bathroom and back, MIN/CGA, use of wh walker, demonstrating very slow, "wobbly" gait pattern with decreased, uneven stride. Patient returned to bedside chair with increased fatigue and remained with call light, tray table, telephone and body alarm awaiting breakfast. Will continue per POC as tolerated, total treatment time 16 minutes. Anderson Padilla, LEADER TIER
--- NOTE | 2019-07-05 08:30 | NUR ---
OT NOTE Pt was seen this A.M. 1:1 for 25 minute OT session. Upon arrival pt was supine in bed. Pt identified by name and and had complaints of L foot/toe pain which she was unable to rate on 0-10 pain scale. Pt presented to therapy with continuous 2.5L-O2 via NC which she remained on throughout the entire session. Pt transferred supine to sit EOB with Chino and use of bed rail for UE support. While sitting EOB challenged pt's static sitting balance, pt was able to maintain F- sitting balance requiring Chino to correct retrograde posture that she was unable to self correct. While sitting EOB pt completed grooming task consisting of hair care with Chino for maintaining upright posture. Sit to stand completed from bed level with Chino and use of w/w for UE support. Functional mobility completed to the bathroom with Chino and use of w/w with multiple LOB backwards that required min-modA to correct. Pt transferred on to standard commode with Chino due to poor safety with alignment and poor safety awareness. Clothing management completed with modA and toilet hygiene completed with SBA while seated. Sit to stand completed from commode level with modA and use of grab bar for UE support due to low surface. Pt then stood sink side while washing her hands with Chino due to severe retrograde posture when standing without UE support. Functional mobility completed back to the recliner with Chino and use of w/w. There she was left sitting upright in the recliner with call light in hand, tray table in place, and body alarm activated for safety. Continue with rec D/C plan to SNF. JOSH Davenport/Gerry
[2019-07-05 09:00] VITALS: BP 88/52
[2019-07-05] MEDS ORDERED: FUROSEMIDE40 MG PO (10:44)
[2019-07-05] MEDS ORDERED: HYDROCODONE-AC1 EAC1 PO (10:44)
[2019-07-05] MEDS ORDERED: XARELTO1 EACH PO (10:47)
--- NOTE | 2019-07-05 11:14 | NUR ---
Contacted patients insurance. They are stating they do cover snf stay after the annual deductable of $7,350 is met. There is an out of pocket max of $7,350. They will cover 90 snf days per year after the deductable is met. Facilities in network are [facility], [facility] and [facility].
--- NOTE | 2019-07-05 11:41 | NUR ---
Patient is discharged to [facility]; transportation scheduled for 1 pm with [facility]. NH, nursing/steward/stewardess third class and patients purnima Kelsey all notified.
[2019-07-05 12:00] VITALS: BP 88/57
--- NOTE | 2019-07-05 12:47 | NUR ---
Called numbers on file to notify family that patient will be picked up by [facility] and taken to [place]. Numbers on file were not working numbers.
--- NOTE | 2019-07-05 13:10 | NUR ---
Discharge instructions reviewed with patient/family. Patient receptive and verbalizes understanding. Follow-up care arranged. Written instructions given to patient/family. Patients son was educated on new prescription changes. Patient was wheeled from unit in the care of EMT's. Patient stated she came with purple fuzzy slippers but nothing was noted on patients admission clothing list. KAREL TURNER
--- NOTE | 2019-07-05 13:14 | NUR ---
Nurse to nurse report given to SUDHIR Nolan at [facility].
--- NOTE | 2019-07-05 13:18 | NUR ---
Patient refused discharge photos of wound
--- NOTE | 2019-07-06 07:31 | NUR ---
OCCUPATIONAL THERAPY CO-SIGN I approve of the Occupational Therapy notes written above. Kailee Carrera, OTR/L
--- NOTE | 2019-07-06 07:32 | NUR ---
PHYSICAL THERAPY CO-SIGN I approve of the Physical Therapy notes written above. Lulú James PT
== END 2019-07-05 14:04 | DRG 291 ==
LOC: ED 09:18 → 4E 11:38 → EDHOLD 11:38 → 4E 12:03
PROVIDERS: Hospitalist; Nurse Practitioner Family; Student in an Organized Health Care Education/Training Program; ADMIT Internal Medicine
PROC: 0HBRXZZ Excision of Toe Nail, External Approach (ICD-10-PCS; principal; 2019-07-05)
DX: I13.0 Hypertensive heart and chronic kidney disease with heart failure and stage 1 through stage 4 chronic kidney disease, or unspecified chronic kidney disease (principal); I50.33 Acute on chronic diastolic (congestive) heart failure; E43 Unspecified severe protein-calorie malnutrition; G93.41 Metabolic encephalopathy; N17.0 Acute kidney failure with tubular necrosis; N18.4 Chronic kidney disease, stage 4 (severe); N30.01 Acute cystitis with hematuria; I82.412 Acute embolism and thrombosis of left femoral vein; I82.812 Embolism and thrombosis of superficial veins of left lower extremity; Z68.1 Body mass index [BMI] 19.9 or less, adult; K52.9 Noninfective gastroenteritis and colitis, unspecified; I25.10 Atherosclerotic heart disease of native coronary artery without angina pectoris; R26.9 Unspecified abnormalities of gait and mobility; E87.6 Hypokalemia; E03.9 Hypothyroidism, unspecified; J44.9 Chronic obstructive pulmonary disease, unspecified; E78.5 Hyperlipidemia, unspecified; I48.91 Unspecified atrial fibrillation; E11.22 Type 2 diabetes mellitus with diabetic chronic kidney disease; F17.210 Nicotine dependence, cigarettes, uncomplicated; R53.1 Weakness; E86.0 Dehydration; B96.20 Unspecified Escherichia coli [E. coli] as the cause of diseases classified elsewhere; B35.1 Tinea unguium; I87.2 Venous insufficiency (chronic) (peripheral); F03.90 Unspecified dementia, unspecified severity, without behavioral disturbance, psychotic disturbance, mood disturbance, and anxiety; L89.152 Pressure ulcer of sacral region, stage 2; W18.30XA Fall on same level, unspecified, initial encounter; Y93.89 Activity, other specified; Y92.098 Other place in other non-institutional residence as the place of occurrence of the external cause; Y99.8 Other external cause status; I25.2 Old myocardial infarction; Z86.73 Personal history of transient ischemic attack (TIA), and cerebral infarction without residual deficits; Z87.440 Personal history of urinary (tract) infections; Z95.5 Presence of coronary angioplasty implant and graft; Z95.0 Presence of cardiac pacemaker; Z88.8 Allergy status to other drugs, medicaments and biological substances; Z98.42 Cataract extraction status, left eye; Z98.41 Cataract extraction status, right eye; Z84.89 Family history of other specified conditions; Z80.3 Family history of malignant neoplasm of breast; Z83.3 Family history of diabetes mellitus; Z82.49 Family history of ischemic heart disease and other diseases of the circulatory system; Z79.899 Other long term (current) drug therapy; Z79.02 Long term (current) use of antithrombotics/antiplatelets; Z79.82 Long term (current) use of aspirin